=== PATIENT | male | born 1960 | race Caucasian/White ===

== ENCOUNTER 2018-03-16 19:13 | Emergency (ER) | payer OTHER ==
[~2018-03-16] VITALS: Ht 170.2 cm; Wt 95.3 kg
[2018-03-16 21:09] VITALS: BP 150/83
== END 2018-03-16 21:12 | disposition home or self-care (01) ==
LOC: ER 19:13
DX: R21 Rash and other nonspecific skin eruption (principal); F17.210 Nicotine dependence, cigarettes, uncomplicated

== ENCOUNTER 2019-01-13 01:03 | Emergency (ER) | payer OTHER ==
[~2019-01-13] VITALS: Ht 170.2 cm; Wt 108.9 kg
[2019-01-13 02:15] VITALS: BP 160/98
== END 2019-01-13 02:17 | disposition home or self-care (01) ==
LOC: ER 01:03
DX: S60.032A Contusion of left middle finger without damage to nail, initial encounter (principal); S60.051A Contusion of right little finger without damage to nail, initial encounter; Y04.8XXA Assault by other bodily force, initial encounter; Y93.89 Activity, other specified; Y92.89 Other specified places as the place of occurrence of the external cause; Y99.8 Other external cause status

== ENCOUNTER 2019-01-22 09:11 | Emergency (ER) | payer OTHER ==
[~2019-01-22] VITALS: Ht 170.2 cm; Wt 104.3 kg
[2019-01-22 09:37] LABS: ABSOLUTE NEUTROPHILS 6.7 thou/uL (1.4-8.2); BASOPHILS 0.5 % (0.0-2.0); EOSINOPHILS 1.2 % (0.0-3.0); HEMATOCRIT 40.6 % (42.0-52.0); HEMOGLOBIN 13.8 gm/dL (14.0-18.0); LYMPHOCYTES 9.8 % (24.0-44.0); MCH 30.4 pg (26.0-34.0); MCHC 33.8 g/dL (28.0-37.0); MCV 89.9 fL (80.0-100.0); MONOCYTES 5.4 % (1.0-8.0); PLATELET COUNT 253 thou/uL (150-400); POLYS 83.1 % (36.0-66.0); RBC 4.52 mil/uL (4.50-6.00); RDW 14.2 % (10.5-14.5); WBC 8.1 thou/uL (4.0-11.0)
[2019-01-22 09:44] LABS: ANION GAP 8 mmol/L (7-16); BUN 7 mg/dL (7-18); CALCIUM 9.3 mg/dL (8.5-10.1); CHLORIDE 101 mmol/L (98-107); CO2 27 mmol/L (21-32); CREATININE 0.8 mg/dL (0.7-1.3); GLUCOSE 120 mg/dL (74-106); POTASSIUM 3.1 mmol/L (3.5-5.1); SODIUM 136 mmol/L (136-145)
[2019-01-22 09:52] LABS: TROPONIN-I <0.06 ng/mL (<0.06)
[2019-01-22] MEDS ORDERED: CLOTRIMAZOLE 1%15 G1 TOP (10:49)
[2019-01-22] MEDS ORDERED: LISINOPRIL5 MG PO (10:49)
[2019-01-22 12:49] VITALS: BP 135/88
--- NOTE | 2019-01-22 16:19 | EKG ---
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: : 1960 Requested By: Shun Ferrari Order Number: [id number] MD: Juan Pablo Estrada Measurements Intervals [place] Rate: 91 P: 54 DC: 139 QRS: -18 QRSD: 97 T: 69 QT: 354 QTc: 436 Interpretive Statements Sinus rhythm Borderline left axis deviation No previous ECG available for comparison Electronically Signed On 01-22-2019 16:18:59 CDT by Juan Pablo Estrada [email or web address] ��������������������������������������������� <ELECTRONICALLY SIGNED> ���������������������������������������� By: Juan Pablo Estrada MD, [facility] ��������������������������������������������� 01/22/19 1618 0930 Juan Pablo Estrada MD, FACC /EPI
== END 2019-01-22 12:59 | disposition home or self-care (01) ==
LOC: ER 09:11
PROVIDERS: Emergency Medicine
DX: I10 Essential (primary) hypertension (principal); B37.2 Candidiasis of skin and nail; M25.562 Pain in left knee; G62.9 Polyneuropathy, unspecified; E78.00 Pure hypercholesterolemia, unspecified; F17.210 Nicotine dependence, cigarettes, uncomplicated; F10.10 Alcohol abuse, uncomplicated; Z76.0 Encounter for issue of repeat prescription

== ENCOUNTER 2019-10-12 12:25 | Emergency (ER) | payer OTHER ==
[~2019-10-12] VITALS: Ht 170.2 cm; Wt 81.7 kg
[~2019-10-12 12:25] MED LIST: CLOTRIMAZOLE 1%15 G1 TOP; LISINOPRIL5 MG PO
[2019-10-12 13:51] LABS: ABSOLUTE NEUTROPHILS 4.3 thou/uL (1.4-8.2); BASOPHILS 0.8 % (0.0-2.0); HEMATOCRIT 40.5 % (42.0-52.0); HEMOGLOBIN 13.2 gm/dL (14.0-18.0); LYMPHOCYTES 20.7 % (24.0-44.0); MCH 29.8 pg (26.0-34.0); MCHC 32.5 g/dL (28.0-37.0); MCV 91.5 fL (80.0-100.0); MONOCYTES 8.7 % (1.0-8.0); PLATELET COUNT 316 thou/uL (150-400); POLYS 66.8 % (36.0-66.0); RBC 4.43 mil/uL (4.50-6.00); WBC 6.4 thou/uL (4.0-11.0)
[2019-10-12 13:56] LABS: ANION GAP 7 mmol/L (7-16); BUN 12 mg/dL (7-18); CALCIUM 9.5 mg/dL (8.5-10.1); CHLORIDE 103 mmol/L (98-107); CO2 28 mmol/L (21-32); CREATININE 0.8 mg/dL (0.7-1.3); GLUCOSE 105 mg/dL (74-106); SODIUM 138 mmol/L (136-145)
[2019-10-12 14:06] LABS: ALBUMIN 3.5 g/dL (3.4-5.0); SGOT 17 U/L (15-37); SGPT 24 U/L (30-65); TOTAL BILIRUBIN 0.2 mg/dL (<0.1-1.0); TOTAL PROTEIN 7.2 g/dL (6.4-8.2); TROPONIN-I <0.06 ng/mL (<0.06)
[2019-10-12] MEDS ORDERED: LISINOPRIL10 MG PO (14:22)
[2019-10-12] MEDS ORDERED: NEURONTIN 300300 M1 PO (14:29)
[2019-10-12 14:51] VITALS: BP 175/97
--- NOTE | 2019-10-13 11:09 | EKG ---
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: : 1960 Requested By: Barbara Sandhu Order Number: [id number] MD: Juan Pablo Estrada Measurements Intervals [place] Rate: 71 P: 37 ND: 142 QRS: 16 QRSD: 94 T: 49 QT: 366 QTc: 398 Interpretive Statements Sinus rhythm No significant abnormality Compared to ECG 01/22/2019 09:30:36 No significant changes Electronically Signed On 10-13-2019 11:08:04 CDT by Juan Pablo Estrada [email or web address] <ELECTRONICALLY SIGNED> By: Juan Pablo Estrada MD, FACC 10/13/19 1108 1328 1328 Juan Pablo Estrada MD, [facility] /EPI
== END 2019-10-12 14:50 | disposition home or self-care (01) ==
LOC: ER 12:25
PROVIDERS: Nurse Practitioner Family
DX: I10 Essential (primary) hypertension (principal); E78.00 Pure hypercholesterolemia, unspecified; G62.9 Polyneuropathy, unspecified; H53.8 Other visual disturbances; F17.210 Nicotine dependence, cigarettes, uncomplicated; Z91.14 Patient's other noncompliance with medication regimen; Z79.899 Other long term (current) drug therapy

== ENCOUNTER 2020-04-12 14:18 | Emergency (ER) | payer OTHER ==
[~2020-04-12] VITALS: Ht 170.2 cm; Wt 81.7 kg
[~2020-04-12 14:18] MED LIST changes: +LISINOPRIL10 MG PO; +NEURONTIN 300300 M1 PO
[2020-04-12] MEDS ORDERED: HYDROCHLOROTHIA25 M2 PO (14:25)
[2020-04-12] MEDS ORDERED: PRINIVIL20 M1 PO (14:26)
[2020-04-12] MEDS ORDERED: MOBIC15 MG PO (16:58)
[2020-04-12 17:20] VITALS: BP 144/97
== END 2020-04-12 17:20 | disposition home or self-care (01) ==
LOC: ER 14:18
DX: S86.911A Strain of unspecified muscle(s) and tendon(s) at lower leg level, right leg, initial encounter (principal); I10 Essential (primary) hypertension; E78.00 Pure hypercholesterolemia, unspecified; G62.9 Polyneuropathy, unspecified; F17.210 Nicotine dependence, cigarettes, uncomplicated; Z79.899 Other long term (current) drug therapy; X58.XXXA Exposure to other specified factors, initial encounter; Y93.89 Activity, other specified; Y92.89 Other specified places as the place of occurrence of the external cause; Y99.8 Other external cause status

== ENCOUNTER 2020-05-01 02:19 | Emergency (ER) | payer OTHER ==
[~2020-05-01] VITALS: Ht 170.2 cm; Wt 72.6 kg
[~2020-05-01 02:19] MED LIST changes: +HYDROCHLOROTHIA25 M2 PO; +MOBIC15 MG PO; +PRINIVIL20 M1 PO
[2020-05-01 03:28] VITALS: BP 167/101
== END 2020-05-01 03:29 | disposition home or self-care (01) ==
LOC: ER 02:19
DX: S80.811A Abrasion, right lower leg, initial encounter (principal); M79.10 Myalgia, unspecified site; I10 Essential (primary) hypertension; E78.5 Hyperlipidemia, unspecified; F17.210 Nicotine dependence, cigarettes, uncomplicated; Z79.899 Other long term (current) drug therapy; X58.XXXA Exposure to other specified factors, initial encounter; Y93.89 Activity, other specified; Y92.89 Other specified places as the place of occurrence of the external cause; Y99.8 Other external cause status

== ENCOUNTER 2020-05-28 20:22 | Emergency (ER) | payer OTHER ==
[~2020-05-28] VITALS: Ht 170.2 cm; Wt 81.7 kg
[2020-05-28] MEDS ORDERED: FLEXERIL PO (21:30)
[2020-05-28] MEDS ORDERED: MOBIC7.5 MG PO (21:30)
[2020-05-28 22:09] VITALS: BP 120/58
== END 2020-05-28 22:12 | disposition home or self-care (01) ==
LOC: ER 20:22
DX: S86.911A Strain of unspecified muscle(s) and tendon(s) at lower leg level, right leg, initial encounter (principal); I10 Essential (primary) hypertension; E78.5 Hyperlipidemia, unspecified; F17.210 Nicotine dependence, cigarettes, uncomplicated; Z79.899 Other long term (current) drug therapy; X58.XXXA Exposure to other specified factors, initial encounter; Y93.89 Activity, other specified; Y92.89 Other specified places as the place of occurrence of the external cause; Y99.8 Other external cause status

== ENCOUNTER → 2020-06-05 | Emergency (ER) | payer OTHER ==
[~2020-06-05] VITALS: Ht 170.2 cm; Wt 77.1 kg
[~2020-06-05] MED LIST changes: +FLEXERIL PO; +MOBIC7.5 MG PO
== END ==
LOC: ER 16:37
DX: R51.9 Headache, unspecified (principal); Z53.21 Procedure and treatment not carried out due to patient leaving prior to being seen by health care provider

== ENCOUNTER 2020-10-21 12:17 | Emergency (ER) | payer OTHER ==
[~2020-10-21] VITALS: Ht 170.2 cm; Wt 81.7 kg
[2020-10-21 12:42] LABS: ABSOLUTE NEUTROPHILS 4.8 thou/uL (1.4-8.2); BASOPHILS 0.6 % (0.0-2.0); HEMATOCRIT 35.2 % (42.0-52.0); HEMOGLOBIN 11.6 gm/dL (14.0-18.0); LYMPHOCYTES 15.3 % (24.0-44.0); MCH 29.1 pg (26.0-34.0); MCHC 32.9 g/dL (28.0-37.0); MCV 88.4 fL (80.0-100.0); MONOCYTES 12.9 % (1.0-8.0); PLATELET COUNT 267 thou/uL (150-400); POLYS 69.2 % (36.0-66.0); RBC 3.99 mil/uL (4.50-6.00); RDW 16.1 % (10.5-14.5)
[2020-10-21 13:12] LABS: POTASSIUM 3.7 mmol/L (3.5-5.1)
[2020-10-21 13:18] LABS: ALBUMIN 3.6 g/dL (3.4-5.0); MAGNESIUM 1.8 mg/dL (1.8-2.4); TOTAL BILIRUBIN 0.5 mg/dL (0.2-1.0)
[2020-10-21] MEDS ORDERED: CYCLOBENZAPRINE5 MG PO (13:57)
[2020-10-21] MEDS ORDERED: NORCO5 PO (14:10)
[2020-10-21 14:18] VITALS: BP 146/79
== END 2020-10-21 14:19 | disposition home or self-care (01) ==
LOC: ER 12:17
PROVIDERS: Physician Assistant
DX: M51.26 Other intervertebral disc displacement, lumbar region (principal); M79.605 Pain in left leg; E78.00 Pure hypercholesterolemia, unspecified; I10 Essential (primary) hypertension; G62.9 Polyneuropathy, unspecified; F17.210 Nicotine dependence, cigarettes, uncomplicated; Z79.899 Other long term (current) drug therapy; V19.88XA Pedal cyclist (driver) (passenger) injured in other specified transport accidents, initial encounter; Y93.55 Activity, bike riding; Y92.413 State road as the place of occurrence of the external cause; Y99.9 Unspecified external cause status

== ENCOUNTER 2020-10-24 21:47 | Emergency (ER) | payer OTHER ==
[~2020-10-24] VITALS: Ht 170.2 cm; Wt 81.7 kg
[~2020-10-24 21:47] MED LIST changes: +CYCLOBENZAPRINE5 MG PO; +NORCO5 PO
[2020-10-24 23:15] VITALS: BP 0/0
== END 2020-10-24 23:30 | disposition home or self-care (01) ==
LOC: ER 21:47
DX: S01.81XA Laceration without foreign body of other part of head, initial encounter (principal); S51.812A Laceration without foreign body of left forearm, initial encounter; I10 Essential (primary) hypertension; E78.00 Pure hypercholesterolemia, unspecified; G62.9 Polyneuropathy, unspecified; F17.210 Nicotine dependence, cigarettes, uncomplicated; Y00.XXXA Assault by blunt object, initial encounter; Y93.89 Activity, other specified; Y92.89 Other specified places as the place of occurrence of the external cause; Y99.8 Other external cause status

== ENCOUNTER 2020-11-08 19:08 | Emergency (ER) | payer OTHER ==
[~2020-11-08] VITALS: Ht 170.2 cm; Wt 72.6 kg
[2020-11-08] MEDS ORDERED: IBUPROFEN 600600 M1 PO (19:18)
[2020-11-08] MEDS ORDERED: IBUPROFEN 800800 MG PO (20:07)
[2020-11-08 21:08] VITALS: BP 147/69
== END 2020-11-08 21:21 | disposition home or self-care (01) ==
LOC: ER 19:08
DX: S93.602A Unspecified sprain of left foot, initial encounter (principal); E78.00 Pure hypercholesterolemia, unspecified; I10 Essential (primary) hypertension; F17.210 Nicotine dependence, cigarettes, uncomplicated; Z59.0 Homelessness; W22.8XXA Striking against or struck by other objects, initial encounter; Y93.89 Activity, other specified; Y92.89 Other specified places as the place of occurrence of the external cause; Y99.8 Other external cause status

== ENCOUNTER 2020-11-13 16:38 | Inpatient (IN) | payer OTHER ==
[~2020-11-13] VITALS: Ht 170.2 cm; Wt 82.6 kg
[~2020-11-13 16:38] MED LIST changes: +IBUPROFEN 600600 M1 PO; +IBUPROFEN 800800 MG PO
[2020-11-13 16:41] VITALS: BP 116/56
[2020-11-13 18:00] LABS: HEMATOCRIT 36.1 % (42.0-52.0); MCH 29.5 pg (26.0-34.0); MCHC 33.2 g/dL (28.0-37.0); MCV 88.9 fL (80.0-100.0); RBC 4.06 mil/uL (4.50-6.00); RDW 15.5 % (10.5-14.5); WBC 5.8 thou/uL (4.0-11.0)
[2020-11-13 18:19] LABS: ANION GAP 11 mmol/L (7-16); BUN 32 mg/dL (7-18); CALCIUM 9.3 mg/dL (8.5-10.1); CHLORIDE 105 mmol/L (98-107); CO2 26 mmol/L (21-32); GLUCOSE 106 mg/dL (74-106); POTASSIUM 3.9 mmol/L (3.5-5.1); SODIUM 142 mmol/L (136-145)
[2020-11-13 18:29] LABS: ALBUMIN 3.4 g/dL (3.4-5.0); SGOT 21 U/L (15-37); SGPT 29 U/L (30-65); TOTAL BILIRUBIN 0.5 mg/dL (0.2-1.0); TOTAL PROTEIN 6.6 g/dL (6.4-8.2); TROPONIN-I <0.06 ng/mL (<0.06)
[2020-11-13 20:57] VITALS: BP 122/64
[2020-11-13 21:48] VITALS: BP 117/59
[2020-11-13 22:05] VITALS: BP 97/55
[2020-11-13 22:15] VITALS: BP 97/55
[2020-11-14] VITALS (8 sets, daily range): BP systolic 100–128; BP diastolic 55–66
[2020-11-14 03:20] LABS: CALCIUM 8.7 mg/dL (8.5-10.1); CREATININE 0.8 mg/dL (0.7-1.3); POTASSIUM 3.7 mmol/L (3.5-5.1)
[2020-11-14] MEDS ORDERED: CARDIZEM CD 18180 M3 PO (15:18)
--- NOTE | 2020-11-15 11:12 | 2DMMODE ---
[facility] [place] [address] 2 D/M-MODE ECHOCARDIOGRAM Name: JORGE MCKENZIE Room #: 360-P [facility] IN .#: [id number] Admission: 11/13/20 Attend Phys: Shira Mujica MD Discharge: 11/14/20 Date of : 58 Report #: [id number] THIS REPORT FOR: cc: CLARE - No family physician/PCP FAM - No family physician/PCP John Bustos MD [facility] ~ APPROVED REPORT Study performed: 11/14/2020 09:07:59 EXAM: Comprehensive 2D, Doppler, and color-flow Echocardiogram Patient Location: Bedside Room #: 360 Status: on-call BSA: 1.94 HR: 70 bpm BP: 104/66 mmHg Rhythm: NSR Other Information Study Quality: Good Indications Atrial Fibrillation 2D Dimensions RVDd: 41.56 mm IVSd: 9.12 (7-11mm) LVOT Diam: 20.40 (18-24mm) LVDd: 54.06 mm PWd: 9.13 (7-11mm) LVDs: 33.66 (25-40mm) Left Atrium: 46.61 (27-40mm) Aortic Root: 32.44 mm Volumes Left Atrial Volume (Systole) Single Plane 4CH: 67.81 mL Single Plane 2CH: 67.95 mL LA ESV Index: 40.00 mL/m2 Aortic Valve AoV Peak Zaheer.: 1.85 m/s AO Peak Gr.: 13.68 mmHg LVOT Max P.41 mmHg LVOT Max V: 1.27 m/s GABRIELLA Vmax: 2.24 cm2 [facility] [address] [place] [address] 2 D/M-MODE ECHOCARDIOGRAM Name: JORGE MCKENZIE Room #: 360-P [facility] IN ..#: [id number] Admission: 11/13/20 Attend Phys: Shira Mujica MD Discharge: 11/14/20 Date of : 58 Report #: [id number] Mitral Valve E/A Ratio: 1.8 MV Decel. Time: 200.63 ms MV E Max Zaheer.: 1.00 m/s MV A Zaheer.: 0.57 m/s MV PHT: 58.18 ms IVRT: 83.04 ms Pulmonary Valve PV Peak Zaheer.: 1.14 m/s PV Peak Gr.: 5.23 mmHg Tricuspid Valve TR Peak Zaheer.: 2.35 m/s RAP Estimate: 5.00 mmHg TR Peak Gr.: 22.13 mmHg PA Pressure: 27.00 mmHg Left Ventricle The left ventricle is normal size. There is normal LV segmental wall motion. There is normal left ventricular wall thickness. Left ventricular systolic function is normal. LVEF is 55-60%. The left ventricular diastolic function is normal. Right Ventricle The right ventricle is normal size. The right ventricular systolic function is normal. Atria Left atrium is mildly dilated. The right atrium size is normal. Aortic Valve The aortic valve is normal in structure. No aortic regurgitation is present. There is no aortic valvular stenosis. Mitral Valve The mitral valve is normal in structure. Mild mitral regurgitation. Tricuspid Valve The tricuspid valve is normal in structure. Mild tricuspid regurgitation. Estimated PAP is 25-30mmHg. Pulmonic Valve The pulmonary valve is normal in structure. There is no pulmonic valvular regurgitation. [facility] [address] [place] [address] 2 D/M-MODE ECHOCARDIOGRAM Name: JORGE MCKENZIE Room #: 360-P [facility] IN ..#: [id number] Admission: 11/13/20 Attend Phys: Shira Mujica MD Discharge: 11/14/20 Date of : 58 Report #: [id number] Great Vessels The aortic root is normal in size. IVC is normal in size and collapses >50% with inspiration. Pericardium There is no pericardial effusion. <Conclusion> The left ventricle is normal size. LVEF is 55-60%. The left ventricular diastolic function is normal. The right ventricle is normal size. Left atrium is mildly dilated. The aortic valve is normal in structure. Mild mitral regurgitation. Mild tricuspid regurgitation. Estimated PAP is 25-30mmHg. The aortic root is normal in size. There is no pericardial effusion. <ELECTRONICALLY SIGNED> By: John Bustos MD, FACC 11/15/20 1111 1111 1111 John Bustos MD, FAC /INF
--- NOTE | 2020-11-15 15:01 | EKG ---
[address] [place] [address] ELECTROCARDIOGRAM REPORT Name: JORGE MCKENZIE Room #: 360-P [facility].#: [id number] Admission: 11/13/20 Attend Phys: Shira Mujica MD Discharge: 11/14/20 Date of : 58 Report #: [id number] [facility] ED Test Date: 2020-11-13 Test Time: 17:55:53 Pat Name: JORGE MCKENZIE Department: Room: [facility] Gender: M Unemployment Insurance Hearing Officer: JCILSA : 1960 Requested By: Ely Guzman Order Number: [id number] MD: Juan Pablo Estrada Measurements Intervals [place] Rate: 80 P: 54 [place]: 136 QRS: 44 QRSD: 98 T: 32 QT: 352 QTc: 406 Interpretive Statements Sinus rhythm Normal tracing Compared to ECG 10/12/2019 13:28:02 No significant changes Electronically Signed On 11-15-2020 15:00:52 CDT by Juan Pablo Estrada [email or web address] <ELECTRONICALLY SIGNED> By: Juan Pablo Estrada MD, [facility] 11/15/20 1500 1755 54 Juan Pablo Estrada MD, FACC /EPI
--- NOTE | 2020-11-15 15:02 | EKG ---
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: JCILSA : 1960 Requested By: Ely Guzman Order Number: [id number] MD: Juan Pablo Estrada Measurements Intervals [place] Rate: 145 P: [place]: QRS: 46 QRSD: 93 T: QT: 306 QTc: 476 Interpretive Statements Atrial fibrillation Nonspecific repol abnormality, diffuse leads Compared to ECG 11/13/2020 17:55:53 Sinus rhythm no longer present Nonspecific ST and T wave abnormality now present Electronically Signed On 11-15-2020 15:02:09 CDT by Juan Pablo Estrada [email or web address] <ELECTRONICALLY SIGNED> By: Juan Pablo Estrada MD, [facility] 11/15/20 1502 1838 1838 Juan Pablo Estrada MD, [facility] /EPI
--- NOTE | 2020-11-15 15:05 | EKG ---
[address] [place] [address] ELECTROCARDIOGRAM REPORT Name: JORGE MCKENZIE Room #: 360-P [facility]#: [id number] Admission: 11/13/20 Attend Phys: Shira Mujica MD Discharge: 11/14/20 Date of : 58 Report #: [id number] [facility] ED Test Date: 2020-11-13 Test Time: 19:33:45 Pat Name: JORGE MCKENZIE Department: Room: [facility] Gender: M Paint Supervisor: GIORGIO : 1960 Requested By: Ely Guzman Order Number: [id number] MD: Juan Pablo Estrada Measurements Intervals [place] Rate: 73 P: 17 [place]: 137 QRS: 28 QRSD: 99 T: 35 QT: 371 QTc: 409 Interpretive Statements Sinus rhythm No significant abnormality Compared to ECG 11/13/2020 18:38:01 Atrial fibrillation no longer present Nonspecific ST and T wave abnormality no longer present Electronically Signed On 11-15-2020 15:05:24 CDT by Juan Pablo Estrada [email or web address] <ELECTRONICALLY SIGNED> By: Juan Pablo Estrada MD, [facility] 11/15/20 1505 32 32 Juan Pablo Estrada MD, [facility] /EPI
== END 2020-11-14 16:03 | disposition home or self-care (01) | DRG 310 ==
LOC: ER 16:38 → EROBS 20:28 → 3W 21:34
PROVIDERS: Nurse Practitioner Family; ADMIT Internal Medicine; ATTEND Internal Medicine
DX: I48.20 Chronic atrial fibrillation, unspecified (principal); M54.5 Low back pain; I10 Essential (primary) hypertension; G62.9 Polyneuropathy, unspecified; E78.00 Pure hypercholesterolemia, unspecified; F17.210 Nicotine dependence, cigarettes, uncomplicated; G89.29 Other chronic pain; R06.00 Dyspnea, unspecified; Z59.0 Homelessness; F10.10 Alcohol abuse, uncomplicated; Z79.899 Other long term (current) drug therapy; Z20.822 Contact with and (suspected) exposure to COVID-19
CPT/HCPCS: 10879

== ENCOUNTER 2020-11-15 07:08 | Emergency (ER) | payer OTHER ==
[~2020-11-15] VITALS: Ht 170.2 cm; Wt 82.6 kg
[~2020-11-15 07:08] MED LIST changes: +CARDIZEM CD 18180 M3 PO
[2020-11-15 07:18] VITALS: BP 117/55
== END 2020-11-15 08:00 | disposition home or self-care (01) ==
LOC: ER 07:08
DX: R46.89 Other symptoms and signs involving appearance and behavior (principal); E78.00 Pure hypercholesterolemia, unspecified; I10 Essential (primary) hypertension; F17.210 Nicotine dependence, cigarettes, uncomplicated; Z59.0 Homelessness

== ENCOUNTER 2020-11-16 14:54 | Emergency (ER) | payer OTHER ==
[~2020-11-16] VITALS: Ht 170.2 cm; Wt 82.6 kg
[2020-11-16 18:45] VITALS: BP 127/104
--- NOTE | 2020-11-17 07:33 | EKG ---
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
== END 2020-11-16 19:00 | disposition home or self-care (01) ==
LOC: ER 14:54
DX: I48.91 Unspecified atrial fibrillation (principal); E78.00 Pure hypercholesterolemia, unspecified; I10 Essential (primary) hypertension; G62.9 Polyneuropathy, unspecified; F17.210 Nicotine dependence, cigarettes, uncomplicated; Z79.899 Other long term (current) drug therapy

== ENCOUNTER 2020-12-09 21:30 | Emergency (ER) | payer OTHER ==
[~2020-12-09] VITALS: Ht 170.2 cm; Wt 83.9 kg
[2020-12-09] MEDS ORDERED: CARDIZEM CD 18180 M3 PO (21:47)
[2020-12-09 22:09] VITALS: BP 142/76
--- NOTE | 2020-12-10 08:05 | EKG ---
[place] [address] [address] [facility] [place] [address] ELECTROCARDIOGRAM REPORT Name: JORGE MCKENZIE [facility] [id number] Admission: 12/09/20 Attend Phys: Discharge: 12/09/20 Date of : 58 Report #: [id number] [facility] ED Test Date: 2020-12-09 Test Time: 21:36:25 Pat Name: JORGE MCKENZIE Department: Room: Gender: Vice President Risk Management: DANNY : 1960 Requested By: Jorge Lacy Order Number: [id number] MD: Juan Pablo Estrada Measurements Intervals [place] Rate: 84 P: 52 [place]: 140 QRS: 33 QRSD: 93 T: 61 QT: 361 QTc: 427 Interpretive Statements Sinus rhythm Consider left atrial enlargement Compared to ECG 11/16/2020 16:42:00 Atrial flutter no longer present Electronically Signed On 12-10-2020 8:05:49 CDT by Juan Pablo Estrada [email or web address] <ELECTRONICALLY SIGNED> By: Juan Pablo Estrada MD, [facility] 12/10/20 0805 2136 2136 Juan Pablo Estrada MD, FACC /EPI
== END 2020-12-09 22:15 | disposition home or self-care (01) ==
LOC: ER 21:30
DX: R53.83 Other fatigue (principal); I48.91 Unspecified atrial fibrillation; I10 Essential (primary) hypertension; E78.00 Pure hypercholesterolemia, unspecified; F10.10 Alcohol abuse, uncomplicated; F17.210 Nicotine dependence, cigarettes, uncomplicated; Z76.0 Encounter for issue of repeat prescription; Z59.0 Homelessness

== ENCOUNTER 2020-12-31 17:18 | Emergency (ER) | payer OTHER ==
[~2020-12-31] VITALS: Ht 170.2 cm; Wt 83.0 kg
[2020-12-31] MEDS ORDERED: HYDROCODON-ACE1 EAC7 PO (19:33)
[2020-12-31] MEDS ORDERED: DILTIAZEM ER180 M2 PO (19:56)
[2020-12-31 20:37] VITALS: BP 162/87
== END 2020-12-31 20:38 | disposition home or self-care (01) ==
LOC: ER 17:18
DX: M79.18 Myalgia, other site (principal); M79.605 Pain in left leg; I10 Essential (primary) hypertension; E78.00 Pure hypercholesterolemia, unspecified; I48.91 Unspecified atrial fibrillation; G62.9 Polyneuropathy, unspecified; F17.210 Nicotine dependence, cigarettes, uncomplicated; Z79.899 Other long term (current) drug therapy

== ENCOUNTER 2021-01-26 05:25 | Emergency (ER) | payer OTHER ==
[~2021-01-26] VITALS: Ht 170.2 cm; Wt 83.9 kg
[~2021-01-26 05:25] MED LIST changes: +DILTIAZEM ER180 M2 PO; +HYDROCODON-ACE1 EAC7 PO
[2021-01-26] MEDS ORDERED: TAMSULOSIN HCL0.4 MG PO (05:38)
[2021-01-26] MEDS ORDERED: SUBOXONE 8 MG-1 EAC3 SUBLING (05:41)
[2021-01-26] MEDS ORDERED: CEPHALEXIN500 MG PO (06:40)
[2021-01-26] MEDS ORDERED: ULTRAM 50MG TAB50 MG PO (06:40)
[2021-01-26] MEDS ORDERED: BACTRIM DS TAB1 EACH PO (06:40)
[2021-01-26 06:57] VITALS: BP 138/68
== END 2021-01-26 06:58 | disposition home or self-care (01) ==
LOC: ER 05:25
DX: L98.9 Disorder of the skin and subcutaneous tissue, unspecified (principal); E78.00 Pure hypercholesterolemia, unspecified; I10 Essential (primary) hypertension; F17.210 Nicotine dependence, cigarettes, uncomplicated; Z79.899 Other long term (current) drug therapy

== ENCOUNTER 2021-02-01 09:39 | Emergency (ER) | payer OTHER ==
[~2021-02-01] VITALS: Ht 170.2 cm; Wt 81.7 kg
[~2021-02-01 09:39] MED LIST changes: +BACTRIM DS TAB1 EACH PO; +CEPHALEXIN500 MG PO; +SUBOXONE 8 MG-1 EAC3 SUBLING; +TAMSULOSIN HCL0.4 MG PO; +ULTRAM 50MG TAB50 MG PO
[2021-02-01] MEDS ORDERED: [UNRECOGNIZED DRUG - OTHER] PO (11:18)
[2021-02-01 12:14] VITALS: BP 157/85
== END 2021-02-01 12:15 | disposition home or self-care (01) ==
LOC: ER 09:39
DX: A49.02 Methicillin resistant Staphylococcus aureus infection, unspecified site (principal); E78.00 Pure hypercholesterolemia, unspecified; I10 Essential (primary) hypertension; F17.210 Nicotine dependence, cigarettes, uncomplicated; Z79.899 Other long term (current) drug therapy

== ENCOUNTER 2021-02-18 22:41 | Emergency (ER) | payer OTHER ==
[~2021-02-18] VITALS: Ht 170.2 cm; Wt 79.4 kg
[~2021-02-18 22:41] MED LIST changes: +[UNRECOGNIZED DRUG - OTHER] PO
[2021-02-18 23:05] LABS: URINE BILIRUBIN NEGATIVE (Negative); URINE BLOOD NEGATIVE (Negative); URINE CLARITY CLEAR; URINE COLOR YELLOW; URINE GLUCOSE-RANDOM* NEGATIVE (Negative); URINE KETONES NEGATIVE (Negative); URINE LEUKOCYTES-REFLEX NEGATIVE (Negative); URINE NITRITE-REFLEX NEGATIVE (Negative); URINE PROTEIN (DIPSTICK) TRACE (Negative); URINE SPECIFIC GRAVITY >= 1.030 (1.005-1.035); URINE UROBILINOGEN 0.2 E.U./dl (0.2-1.0)
[2021-02-19 01:18] VITALS: BP 104/51
[2021-02-19 08:03] LABS: AMP/METHAMP POSITIVE (Negative); BARBITURATES Negative (Negative); BENZODIAZEPINES Negative (Negative); COCAINE Negative (Negative); METHADONE Negative (Negative); OPIATES Negative (Negative); PCP Negative (Negative)
== END 2021-02-19 01:18 | disposition home or self-care (01) ==
LOC: ER 22:41
DX: G89.29 Other chronic pain (principal); M54.5 Low back pain

== ENCOUNTER 2021-03-25 08:48 | Emergency (ER) | payer OTHER ==
[~2021-03-25] VITALS: Ht 170.2 cm; Wt 79.4 kg
[2021-03-25] MEDS ORDERED: NORVASC5 MG PO (09:01)
[2021-03-25] MEDS ORDERED: LISINOPRIL20 MG PO (09:01)
[2021-03-25 09:16] LABS: BASOPHILS 0.5 % (0.0-2.0); EOSINOPHILS 2.9 % (0.0-3.0); HEMATOCRIT 40.3 % (42.0-52.0); HEMOGLOBIN 12.8 gm/dL (14.0-18.0); LYMPHOCYTES 13.1 % (24.0-44.0); MCH 27.2 pg (26.0-34.0); MCHC 31.7 g/dL (28.0-37.0); MONOCYTES 7.8 % (1.0-8.0); PLATELET COUNT 307 thou/uL (150-400); POLYS 75.7 % (36.0-66.0); RBC 4.69 mil/uL (4.50-6.00); RDW 16.8 % (10.5-14.5); WBC 7.9 thou/uL (4.0-11.0)
[2021-03-25 09:24] LABS: CALCIUM 9.3 mg/dL (8.5-10.1); CREATININE 0.8 mg/dL (0.7-1.3); POTASSIUM 3.8 mmol/L (3.5-5.1)
[2021-03-25 09:33] LABS: MAGNESIUM 1.7 mg/dL (1.8-2.4)
--- NOTE | 2021-03-25 12:51 | EKG ---
[facility] [place] [address] ELECTROCARDIOGRAM REPORT Name: JORGE MCKENZIE [facility] [id number] Admission: 03/25/21 Attend Phys: Discharge: Date of : 58 Report #: [id number] [facility] ED Test Date: 2021-03-25 Test Time: 08:58:58 Pat Name: JORGE MCKENZIE Department: Room: Gender: M Center Sales And Service Associate: NASRA : 1960 Requested By: Dejuan Vallecillo Order Number: [id number] MD: Juan Pablo Estrada Measurements Intervals [place] Rate: 76 P: 73 [place]: 135 QRS: 40 QRSD: 101 T: 39 QT: 389 QTc: 438 Interpretive Statements Sinus rhythm Ventricular bigeminy Compared to ECG 12/09/2020 21:36:25 Ventricular premature complex(es) now present Electronically Signed On 03-25-2021 12:50:42 CDT by Juan Pablo Estrada [email or web address] <ELECTRONICALLY SIGNED> By: Juan Pablo Estrada MD, [facility] 03/25/21 1250 0858 0858 Juan Pablo Estrada MD, FACC /EPI
[2021-03-25 14:08] VITALS: BP 172/89
== END 2021-03-25 14:10 | disposition home or self-care (01) ==
LOC: ER 08:48
PROVIDERS: Student in an Organized Health Care Education/Training Program
DX: R07.89 Other chest pain (principal); R53.1 Weakness; F17.210 Nicotine dependence, cigarettes, uncomplicated; E78.00 Pure hypercholesterolemia, unspecified; I10 Essential (primary) hypertension; Z59.0 Homelessness; Z79.899 Other long term (current) drug therapy; Z20.822 Contact with and (suspected) exposure to COVID-19

== ENCOUNTER 2021-04-12 13:49 | Emergency (ER) | payer OTHER ==
[~2021-04-12] VITALS: Ht 170.2 cm; Wt 77.1 kg
--- NOTE | ~2021-04-12 | EMS ---
[place] [address] EMS Patient Care Report Name: JORGE MCKENZIE Room #: DEP Sudha#: [id number] Admission: 04/12/21 Attend Phys: Discharge: 04/12/21 Date of : 58 Report #: [id number] THIS REPORT FOR: //name// Report Transmitted: 04/13/2021 08:48 EMS Care Summary [place], [place]/[employer] Incident [id number] @ 04/12/2021 13:[address] [place] [address] Patient JORGE MCKENZIE Male, 61 Years 1960 Patient Address Homeless Patient History Hypertension (HTN),Arthritis,IV Drug Use/Abuse,Atrial Fibrillation, Patient Allergies No known allergies, Patient Medications Cardizem, Lisinopril, Chief Complaint heroin OD Disposition Transported No Lights/[place] Dispatch Reason Overdose/Poisoning/Ingestion Transported To [facility] Narrative Initially waved down by by standers on side of street however when EMS parked and got out, wavers stated the pt was actually across the street ahead of the light. Wavers stated it was their friend and he was ODing on Heroin. Went to location bystanders pointed out to find [employer] and [place] [employer] with pt laying supine on a gator vehicle they retrieved the pt from ([place] [address] EMS Patient Care Report Name: JORGE MCKENZIE [facility]: [facility]P [facility]#: [id number] Admission: 04/12/21 Attend Phys: Discharge: 04/12/21 Date of : 58 Report #: [id number] rec). Pt had agonal breathing and PD stated he was purple a few minutes ago however his color was pink upon our arrival. Pumper ordered emergency for hands. Pt administered Narcan on the gator. Pt then lifted onto cot and placed on NRB. Pt secured to cot with cot straps and placed in back of unit. Pt ventilated with BVM as [place] and [employer] Pumper arrived. Pt started to become awake and combative. Pt handcuffed to cot and BVM was discontinued. Pt was alert and responded appropriately to all questions. Pumpers placed in service and [employer] rode with M36 to hospital. Pt transported without incident. Care to RN, rm 9. Initial Vitals @13:46P: 135,R: 18,BP: 146/70,Pain: 0/10,GCS: 15,SpO2: 100,Revised Trauma: 12, @13:34P: 97,CO: 3,SpO2: 97, @13:34P: 97,Glucose: 220,CO: 3,SpO2: 82, @13:34P: 99,R: 10,BP: 177/89,Pain: 0/10,GCS: 3,CO: 2,SpO2: 91,Revised Trauma: 8, Assessments @13:30MENTAL:Unresponsive,SKIN:HEENT:Eyes: Left: Constricted,Eyes: Right: Constricted,Neck/Airway: No Abnormalities,LUNG SOUNDS:General: No Abnormalities,Left Upper: No Abnormalities,Right Upper: No Abnormalities,Left Lower: No Abnormalities,Right Lower: No Abnormalities,ABDOMEN:General: No Abnormalities,Left Upper: No Abnormalities,Right Upper: No Abnormalities,Left Lower: No Abnormalities,Right Lower: No Abnormalities,PELVIS//GI:EXTREMITIES:Left Arm: No Abnormalities,Right Arm: No Abnormalities,Left Leg: No Abnormalities,Right Leg: No Abnormalities,PULSE:NEURO:Other,@13:47MENTAL:Person Oriented,Time Oriented,Combative,Place Oriented,Event Oriented,SKIN:HEENT:Head/Face: No Abnormalities,Eyes: No Abnormalities,LUNG SOUNDS:ABDOMEN:PELVIS//GI:EXTREMITIES:PULSE:NEURO:Slurred Speech, Impression Overdose - Heroin Procedures @13:30 ALS Assessment Response: UnchangedSucceeded @13:33 Oxygen FlowRate: 15 Device: Non Re-breather Mask (NRB) Response: UnchangedSucceeded @13:36 3-Lead ECG Response: UnchangedSucceeded @13:35 NPA Response: UnchangedSucceeded @13:31 Narcan - 2 Milligrams (mg) - Intranasal Response: Improved @13:37 Oxygen FlowRate: 15 Device: Bag Valve Mask (BVM) Response: ImprovedSucceeded Timeline 13:16,Call Received [address] [address] EMS Patient Care Report Name: JORGE MCKENZIE Room #: DEP ROSE Haley#: [id number] Admission: 04/12/21 Attend Phys: Discharge: 04/12/21 Date of : 58 Report #: [id number] 13:16,Dispatch Notified 13:21,Dispatched 13:23,En Route 13:28,On Scene 13:29,At Patient 13:30,ALS Assessment,Response: UnchangedSucceeded, 13:31,Narcan - 2 Milligrams (mg) - Intranasal,Response: Improved 13:33,Oxygen FlowRate: 15 Device: Non Re-breather Mask (NRB) Response: UnchangedSucceeded, 13:34,BP: / M,PULSE: 97,RR: R,SPO2: 82 Ox,ETCO2: ,B,PAIN: ,GCS: , 13:34,BP: 177/89 M,PULSE: 99,RR: 10 R,SPO2: 91 Ox,ETCO2: ,BG: ,PAIN: 0,GCS: 3, 13:34,BP: / M,PULSE: 97,RR: R,SPO2: 97 Ox,ETCO2: ,BG: ,PAIN: ,GCS: , 13:35,NPA Response: UnchangedSucceeded, 13:36,3-Lead ECG,Response: UnchangedSucceeded, 13:37,Oxygen FlowRate: 15 Device: Bag Valve Mask (BVM) Response: ImprovedSucceeded, 13:43,Depart Scene 13:46,BP: 146/70 M,PULSE: 135,RR: 18 R,SPO2: 100 Ox,ETCO2: ,BG: ,PAIN: 0,GCS: 15, 13:47,At Destination 14:01,Call Closed Disclaimer v1.1 Copyright 2020 [employer] This EMS Care Summary contains data elements from the applicable legal record (which may be displayed differently). It is designed to provide pertinent information for the following purposes: continuity of care, clinical quality, and state data reporting. The complete legal record is available to ED staff and administrators of the receiving hospital in ES's Patient Tracker. All data is provided "as is."
[~2021-04-12 13:49] MED LIST changes: +LISINOPRIL20 MG PO; +NORVASC5 MG PO
[2021-04-12 14:12] LABS: BASOPHILS 0.5 % (0.0-2.0); EOSINOPHILS 3.6 % (0.0-3.0); HEMATOCRIT 39.6 % (42.0-52.0); HEMOGLOBIN 12.9 gm/dL (14.0-18.0); LYMPHOCYTES 32.3 % (24.0-44.0); MCH 28.1 pg (26.0-34.0); MCHC 32.5 g/dL (28.0-37.0); MCV 86.6 fL (80.0-100.0); MONOCYTES 8.1 % (1.0-8.0); PLATELET COUNT 394 thou/uL (150-400); POLYS 55.5 % (36.0-66.0); RBC 4.57 mil/uL (4.50-6.00); RDW 16.2 % (10.5-14.5)
[2021-04-12 14:39] LABS: ALBUMIN 3.5 g/dL (3.4-5.0); CALCIUM 8.9 mg/dL (8.5-10.1); POTASSIUM 3.5 mmol/L (3.5-5.1); TOTAL BILIRUBIN 0.2 mg/dL (0.2-1.0); TOTAL PROTEIN 7.2 g/dL (6.4-8.2)
[2021-04-12 14:48] LABS: AMP/METHAMP POSITIVE (Negative); BARBITURATES Negative (Negative); BENZODIAZEPINES Negative (Negative); COCAINE Negative (Negative); METHADONE Negative (Negative); OPIATES POSITIVE (Negative); PCP Negative (Negative)
[2021-04-12 14:49] LABS: URINE BILIRUBIN NEGATIVE (Negative); URINE BLOOD NEGATIVE (Negative); URINE CLARITY CLEAR; URINE COLOR YELLOW; URINE GLUCOSE-RANDOM* TRACE (Negative); URINE KETONES NEGATIVE (Negative); URINE LEUKOCYTES-REFLEX NEGATIVE (Negative); URINE NITRITE-REFLEX NEGATIVE (Negative); URINE PROTEIN (DIPSTICK) 1+ (Negative); URINE SPECIFIC GRAVITY >= 1.030 (1.005-1.035); URINE UROBILINOGEN 0.2 E.U./dl (0.2-1.0)
[2021-04-12 14:53] LABS: SQUAMOUS None Seen /LPF (0-3); URINE RBC 1-2 Rare /HPF (NONE SEEN); URINE WBC-REFLEX None Seen /HPF (0-5)
[2021-04-12 14:54] LABS: BACTERIA-REFLEX None Seen /HPF (None Seen); CRYSTALS None Seen /LPF (None Seen); HYALINE CASTS 0-3 Few /LPF (None Seen)
[2021-04-12 16:28] VITALS: BP 104/71
== END 2021-04-12 16:28 | disposition home or self-care (01) ==
LOC: ER 13:49
PROVIDERS: Nurse Practitioner
DX: T40.1X1A Poisoning by heroin, accidental (unintentional), initial encounter (principal); Z20.822 Contact with and (suspected) exposure to COVID-19; F15.10 Other stimulant abuse, uncomplicated; E78.5 Hyperlipidemia, unspecified; E78.00 Pure hypercholesterolemia, unspecified; I10 Essential (primary) hypertension; G62.9 Polyneuropathy, unspecified; I48.91 Unspecified atrial fibrillation; F17.210 Nicotine dependence, cigarettes, uncomplicated; F10.10 Alcohol abuse, uncomplicated; Z79.891 Long term (current) use of opiate analgesic; Z79.899 Other long term (current) drug therapy; Y92.89 Other specified places as the place of occurrence of the external cause

== ENCOUNTER 2021-04-18 12:46 | Inpatient (IN) | payer OTHER ==
[~2021-04-18] VITALS: Ht 170.2 cm; Wt 77.6 kg
[2021-04-18 12:50] VITALS: BP 79/35
[2021-04-18 13:11] LABS: BASOPHILS 0.7 % (0.0-2.0); EOSINOPHILS 1.6 % (0.0-3.0); HEMOGLOBIN 12.6 gm/dL (14.0-18.0); LYMPHOCYTES 21.8 % (24.0-44.0); MCH 27.6 pg (26.0-34.0); MCHC 32.3 g/dL (28.0-37.0); MCV 85.6 fL (80.0-100.0); MONOCYTES 8.6 % (1.0-8.0); PLATELET COUNT 241 thou/uL (150-400); POLYS 67.3 % (36.0-66.0); RBC 4.56 mil/uL (4.50-6.00); RDW 16.6 % (10.5-14.5); WBC 7.5 thou/uL (4.0-11.0)
[2021-04-18 13:16] LABS: CALCIUM 9.1 mg/dL (8.5-10.1); CREATININE 5.7 mg/dL (0.7-1.3); POTASSIUM 3.8 mmol/L (3.5-5.1)
[2021-04-18 13:27] LABS: ALBUMIN 3.4 g/dL (3.4-5.0); TOTAL PROTEIN 7.2 g/dL (6.4-8.2)
--- NOTE | 2021-04-18 13:35 | EKG ---
[facility] [place] [address] ELECTROCARDIOGRAM REPORT Name: JORGE MCKENZIE Room #: REG [facility]#: [id number] Admission: 04/18/21 Attend Phys: Discharge: Date of : 58 Report #: [id number] [facility] ED Test Date: 2021-04-18 Test Time: 13:04:08 Pat Name: JORGE MCKENZIE Department: Room: Gender: M Registry Np: alina : 1960 Requested By: Ely Guzman Order Number: [id number] MD: Juan Pablo Estrada Measurements Intervals [place] Rate: 73 P: 65 [place]: 167 QRS: 47 QRSD: 110 T: 67 QT: 430 QTc: 474 Interpretive Statements Sinus rhythm Atrial premature complexes Probable left atrial enlargement Artifact in multiple leads Compared to ECG 03/25/2021 08:58:58 Atrial premature complex(es) now present Ventricular premature complex(es) no longer present Electronically Signed On 04-18-2021 13:34:43 CDT by Juan Pablo Estrada [email or web address] <ELECTRONICALLY SIGNED> By: Juan Pablo Estrada MD, [facility] 04/18/21 1334 1304 1304 Juan Pablo Estrada MD, [facility] /EPI
[2021-04-18 13:36] LABS: URINE BILIRUBIN NEGATIVE (Negative); URINE BLOOD 2+ (Negative); URINE CLARITY CLEAR; URINE COLOR YELLOW; URINE GLUCOSE-RANDOM* TRACE (Negative); URINE KETONES NEGATIVE (Negative); URINE NITRITE-REFLEX NEGATIVE (Negative); URINE PROTEIN (DIPSTICK) 1+ (Negative); URINE SPECIFIC GRAVITY >= 1.030 (1.005-1.035)
[2021-04-18 13:49] LABS: URINE LEUKOCYTES-REFLEX 2+ (Negative)
[2021-04-18 13:52] LABS: SQUAMOUS 0-3 Few /LPF (0-3)
[2021-04-18 13:53] LABS: FINE GRANULAR CASTS 0-3 Few /LPF (None Seen); MUCUS >6 Heavy strn/LPF (None Seen); URINE WBC-REFLEX 6-15 Few /HPF (0-5)
[2021-04-18 13:54] LABS: AMORPHOUS URATES Few /LPF (None Seen); URINE RBC 1-2 Rare /HPF (NONE SEEN)
[2021-04-18 13:57] LABS: AMP/METHAMP POSITIVE (Negative); BARBITURATES Negative (Negative); BENZODIAZEPINES Negative (Negative); COCAINE Negative (Negative); METHADONE Negative (Negative); OPIATES Negative (Negative); PCP Negative (Negative)
[2021-04-18 15:12] LABS: APTT 27.1 Seconds (24.5-32.8); INR 1.06; PROTIME 11.5 Seconds (10.5-12.1)
[2021-04-18 15:30] VITALS: BP 115/68
[2021-04-18 16:00] VITALS: BP 117/61
[2021-04-18 18:58] VITALS: BP 124/73
[2021-04-18 23:27] VITALS: BP 124/74
[2021-04-19 02:05] LABS: HAV IgM AB (ANTI-HAV IgM) Negative (Negative); HEPATITIS B SURFACE AG Negative (Negative)
[2021-04-19 03:59] VITALS: BP 147/76
[2021-04-19 04:29] LABS: HEMATOCRIT 34.3 % (42.0-52.0); HEMOGLOBIN 11.5 gm/dL (14.0-18.0); MCH 28.2 pg (26.0-34.0); MCHC 33.5 g/dL (28.0-37.0); RBC 4.08 mil/uL (4.50-6.00); RDW 16.6 % (10.5-14.5); WBC 5.5 thou/uL (4.0-11.0)
[2021-04-19 04:44] LABS: ALBUMIN 2.8 g/dL (3.4-5.0); CALCIUM 8.2 mg/dL (8.5-10.1); MAGNESIUM 1.5 mg/dL (1.8-2.4); TOTAL BILIRUBIN 0.8 mg/dL (0.2-1.0)
[2021-04-19 04:45] LABS: CREATININE 2.9 mg/dL (0.7-1.3)
[2021-04-19 04:49] LABS: CHOLESTEROL 123 mg/dL (<200); HDL CHOLESTEROL 27 mg/dL (>40); LDL CHOLESTEROL 84 mg/dL (<100); SERUM ASSESSMENT Clear; TC:HDL 4.6 Ratio (Not establshd); TRIGLYCERIDE 63 mg/dL (<150); VLDL 13 mg/dL (<40)
--- NOTE | 2021-04-19 06:15 | NUR ---
UPON 0400 REASSESSMENT PATIENT STATED THAT HE HAD A "SEIZURE" EARLIER IN SHIFT. NURSE ASKED PATIENT TO DESCRIBE SYMPTOMS AND HE STATED THAT HE HAD NUMBNESS ON HIS RIGHT SIDE AND STARTED TO DROOL. HE THEN STATED HE CAN "CREATE" THE "SEIZURES" BY RUBBING FEET TOGETHER. PATIENT THEN PRECEDED TO RUB FEET TOGETHER AND STARTED TO HAVE MUMBLED SPEECH. DURING THIS EVENT NURSE ASSESSED PATIENT STRENGTH AND FOUND IT TO BE EQUAL BILATERALLY. WITHIN MINUTE PATIENT STARTED SPEAKING WITH CLEAR SPEECH AND SAID THE NUMBNESS "WENT AWAY". NURSE INSTRUCTED PATIENT TO NOT TRY TO RECREATE FACTORS THAT LEAD TO SIMILAR SYMPTOMS UNTIL DOCTOR ARRIVES AND CAN WITNESS. PATIENT HAS HAD NO SLURRED SPEECH THROUGHOUT SHIFT BESIDES THIS ISOLATED INCIDENT.
[2021-04-19 07:20] VITALS: BP 145/78
--- NOTE | 2021-04-19 08:31 | NUR ---
ASSUMED CARE OF PT AT 0700. PT IS RESTING IN BED, GETTING A ABDOMEN ULTRASOUND AT TIME OF ASSESSMENT AND MEDICATION ADMINISTRATION. PT IS CALM AND COMPLIANT WITH ASSESSMETN AND MEIDICATION ADMINISTRATION. PT HAS NO COMPLAINTS AT THIS TIME OTHER THAN WANTING BREAKFAST. PT REPORTS NO PAIN TO THIS NURSE AT THIS TIME. WILL CONTINUE TO MONITOR.
[2021-04-19 11:15] VITALS: BP 142/66
--- NOTE | 2021-04-19 15:14 | EKG ---
[address] [address] ELECTROCARDIOGRAM REPORT Name: JORGE MCKENZIE Room #: 215-P ADM IN M.R.#: [id number] Admission: 04/18/21 Attend Phys: Mich Gomez MD Discharge: Date of : 58 Report #: [id number] [facility] ED Test Date: 2021-04-18 Test Time: 13:47:30 Pat Name: JORGE AGUILARKINNEY Department: Room: 215 P Gender: M Senior Product Consultant: IG : 1960 Requested By: Mich Gomez Order Number: [id number] : Maurisio Nunez Measurements Intervals [place] Rate: 61 P: 61 [place]: 153 QRS: 48 QRSD: 99 T: 56 QT: 416 QTc: 419 Interpretive Statements Sinus rhythm Compared to ECG 04/18/2021 13:04:08 Atrial premature complex(es) no longer present Electronically Signed On 04-19-2021 15:14:08 CDT by Maurisio Nunez [email or web address] <ELECTRONICALLY SIGNED> By: Maurisio Nunez MD, [facility] 04/19/21 1514 1347 46 Maurisio Nunez MD, FACC /EPI
[2021-04-19 15:30] VITALS: BP 169/84
[2021-04-19 20:03] VITALS: BP 183/109
[2021-04-19 22:02] VITALS: BP 151/85
--- NOTE | 2021-04-20 01:37 | NUR ---
PT ALERT AND ORIENTED X4. HOSTILE AT TIMES DUE TO HE WANTED TO EAT A REGULAR DIET AND WAS ORDERED A FULL LIQUID DIET. 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 SHE DID NOT ADVANCE DIET DUE TO IT WAS UNCLEAR FROM PHYSICIAN NOTES WHY PT STILL ON FULL LIQUIDS. PUDDING GIVEN X1 UNTIL DIET ADVANCED IN AM BY DR. PT STATED HE WAS GIVEN PUDDING AND ICE CREAM ALL DAY BY DAY SHIFT NS BUT CALMED DOWN AND AGREED TO STAY IN THE HOSPITAL AND NOT GO AMA UNTIL AM IF THE DR CHANGES HIS DIET. BED DOWN CALLLIGHT IN REACH. BED ALARM IS ON. NO S/S DTS NOTED SO FAR TONIGHT.
[2021-04-20 03:49] VITALS: BP 152/89
[2021-04-20 04:29] VITALS: BP 152/89
--- NOTE | 2021-04-20 06:04 | NUR ---
PT RESTING QUIETLY THIS AM. NO C/O DIZZINESS OR ABDOMINAL PAIN. BP MODERATELY ELEVATED BUT NOT HIGH ENOUGH TO TREAT THIS AM. NO S/S DISTRESS BED DOWN CALL LIGHT IN REACH.
[2021-04-20 07:45] VITALS: BP 158/97
[2021-04-20 10:12] LABS: HEMOGLOBIN 11.6 gm/dL (14.0-18.0); MCH 27.3 pg (26.0-34.0); MCHC 32.2 g/dL (28.0-37.0); MCV 84.7 fL (80.0-100.0); PLATELET COUNT 176 thou/uL (150-400); RBC 4.25 mil/uL (4.50-6.00); RDW 16.4 % (10.5-14.5); WBC 5.1 thou/uL (4.0-11.0)
[2021-04-20 10:39] LABS: MAGNESIUM 1.3 mg/dL (1.8-2.4); PHOSPHORUS 3.1 mg/dL (2.6-4.7)
--- NOTE | 2021-04-20 10:49 | NUR ---
Assumed care of pt this AM. Pt is A&O x4, on RA. Denies any chest pain. SR on the monitor. Fall precautions in place & calls appropriately. Completed med rec & restarted home meds d/t HTN. Diet advanced to regular. Will continue to assess.
[2021-04-20 11:25] VITALS: BP 161/104
--- NOTE | 2021-04-20 11:32 | NUR ---
Patient admits with weakness and dizzzy. Patient has hepatitis. Patient is homeless. Hx of meth/thc. Patient reports at dc he may be able to stay with a friend at [place] [address]. Discussed casemgt can assist with cab to location. Patient currently working at [employer]. Gave patient phone and number to call to alert he is in hospital. Gave patient [facility] informnation. Patient utilizes bike and has a tent he resides in near hospital. Patient with need for PCP, however utilizes ER for services. message lest for first [facility] to f/u with patient for medicaid or disability.
[2021-04-20 13:32] LABS: ABSOLUTE NEUTROPHILS 1.5 thou/uL (1.4-8.2); ATYPICAL LYMPHS 14 %
[2021-04-20 15:40] VITALS: BP 151/96
[2021-04-20 19:12] VITALS: BP 147/94
--- NOTE | 2021-04-20 19:45 | NUR ---
PT WATCHING TV IN BED, IN THE DARK. SMILNG TALKATIVE. IVF, PT REQUESTED HS SNACK AND PROVIDED.
[2021-04-21 03:40] VITALS: BP 168/98
[2021-04-21 07:30] VITALS: BP 140/90
[2021-04-21 11:00] VITALS: BP 145/86
[2021-04-21 11:13] LABS: ALBUMIN 2.8 g/dL (3.4-5.0); CALCIUM 8.8 mg/dL (8.5-10.1); POTASSIUM 4.5 mmol/L (3.5-5.1); TOTAL BILIRUBIN 0.4 mg/dL (0.2-1.0); TOTAL PROTEIN 6.2 g/dL (6.4-8.2)
[2021-04-21 11:22] LABS: CREATININE 1.1 mg/dL (0.7-1.3)
[2021-04-21 16:00] VITALS: BP 149/87
--- NOTE | 2021-04-21 16:53 | NUR ---
ASSESSMENT CHARTED - MEDS PER AUG - GIVEN MS 2 MGS FOR CO'S OF HEADACHE WITH GOOD RELIEF. CHRIS DIET AND FLUIDS WITH NO CO'S OF NAUSEA. PT VOICING PER URINAL - IV FLUIDS CONTINUE ORDERED. PT UP TO THE BATHROOM FOR BM THIS AM. NO CO'S AT THE PREENT TIME APPEARS TO BE RESTING COMFORTABLY.
[2021-04-21 19:46] VITALS: BP 147/90
[2021-04-22 04:57] LABS: ALBUMIN 2.8 g/dL (3.4-5.0); CALCIUM 8.8 mg/dL (8.5-10.1); CREATININE 0.9 mg/dL (0.7-1.3); MAGNESIUM 1.4 mg/dL (1.8-2.4); POTASSIUM 4.5 mmol/L (3.5-5.1); TOTAL BILIRUBIN 0.4 mg/dL (0.2-1.0); TOTAL PROTEIN 6.3 g/dL (6.4-8.2)
[2021-04-22 05:07] VITALS: BP 160/88
--- NOTE | 2021-04-22 05:21 | NUR ---
pt resting quietly in room thru the noc, voiding per urinal, requesting freq snacks, ms given for c/o arthur at start of shift, repositions self in bed, pending am labs, will con't to monitor per ppoc.
[2021-04-22 05:22] LABS: HEMATOCRIT 35.5 % (42.0-52.0); HEMOGLOBIN 11.9 gm/dL (14.0-18.0); MCH 28.2 pg (26.0-34.0); MCHC 33.4 g/dL (28.0-37.0); MCV 84.6 fL (80.0-100.0); RBC 4.2 mil/uL (4.50-6.00); RDW 16.6 % (10.5-14.5); WBC 5.8 thou/uL (4.0-11.0)
[2021-04-22 08:33] VITALS: BP 150/96
[2021-04-22 12:07] VITALS: BP 140/89
[2021-04-22 13:39] LABS: HEPATITIS C VIRUS AB 7.5
[2021-04-22] MEDS ORDERED: CARDIZEM CD 18180 M3 PO (14:32)
[2021-04-22] MEDS ORDERED: CEFUROXIME250 MG PO (14:32)
[2021-04-22] MEDS ORDERED: NORVASC5 MG PO (14:32)
[2021-04-22 15:14] VITALS: BP 142/86
[2021-04-22 16:11] VITALS: BP 142/86
[2021-04-22 16:23] VITALS: BP 142/86
--- NOTE | 2021-04-22 16:28 | NUR ---
Pt dcing today. He declined homeless care home info and wants to dc via his bicyle back to his tent. Three dc medications vouched per the [facility] for a total of $52.73. [facility] info provided. Encouraged followup care.
--- NOTE | 2021-04-22 16:42 | NUR ---
ASSESSMENT CHARTED - MEDS PER AUG - GIVEN MOTRIN FOR CO'S OF HEADACHE WITH RELIEF. CHRIS DIET AND FLUIDS-NO CO'S OF NASUEA. UP AD RENEE IN ROOM... SHOWERED THIS AFTERNOON. PT HOME THIS AFTER - INSTRUCTION RE HOME MEDS/ FOLLOW UP AND CARE GIVEN - STATED HE KNEW ALL ABOUT THAT STUFF AND DID NOT NEED TO HEAR IT AGAIN- GAVE PT MEDICATIONS FILLED IN OUTPT PHARM - TOOK TO SECURITY AND RETIEVED BIKE - PT LEFT VIA BIKE . NO CO'S AT TIME OF D/C.
== END 2021-04-22 16:40 | disposition home or self-care (01) | DRG 441 ==
LOC: ER 12:46 → EROBS 14:57 → 2N 15:43
PROVIDERS: Emergency Medicine; Nurse Practitioner Family; ADMIT Internal Medicine; ATTEND Internal Medicine
DX: B17.10 Acute hepatitis C without hepatic coma (principal); N17.0 Acute kidney failure with tubular necrosis; G92.8 Other toxic encephalopathy; E44.0 Moderate protein-calorie malnutrition; N30.00 Acute cystitis without hematuria; E87.2 Acidosis; N40.1 Benign prostatic hyperplasia with lower urinary tract symptoms; Z20.822 Contact with and (suspected) exposure to COVID-19; E78.00 Pure hypercholesterolemia, unspecified; I10 Essential (primary) hypertension; G62.9 Polyneuropathy, unspecified; F12.90 Cannabis use, unspecified, uncomplicated; R74.01 Elevation of levels of liver transaminase levels; F15.10 Other stimulant abuse, uncomplicated; D63.8 Anemia in other chronic diseases classified elsewhere; F17.210 Nicotine dependence, cigarettes, uncomplicated; Z59.00 Homelessness unspecified
CPT/HCPCS: 10081

== ENCOUNTER 2021-04-29 23:19 | Inpatient (IN) | payer OTHER ==
[~2021-04-29] VITALS: Ht 175.3 cm; Wt 79.4 kg
--- NOTE | ~2021-04-29 | EKG ---
[address] [place] [address] ELECTROCARDIOGRAM REPORT Name: JORGE MCKENZIE Room #: 219-P ADM IN M.R.#: [id number] Admission: 04/30/21 Attend Phys: Evelyn Dunlap Discharge: Date of : 58 Report #: [id number] [facility] ED Test Date: 2021-04-30 Test Time: 01:29:51 Pat Name: JORGE MCKENZIE Department: Room: 219 P Gender: M School Bus Attendant: meir : 1960 Requested By: Lynne Pisano Order Number: [id number] MD: Measurements Intervals [place] Rate: 72 P: 58 [place]: 142 QRS: 11 QRSD: 106 T: 38 QT: 369 QTc: 404 Interpretive Statements Sinus rhythm Compared to ECG 04/29/2021 23:36:11 Atrial fibrillation no longer present ST (T wave) deviation no longer present [email or web address] By: 0129 012 Epiphany Epiphany, /EPI
[~2021-04-29 23:19] MED LIST changes: +CEFUROXIME250 MG PO
[2021-04-29 23:29] VITALS: BP 143/85
[2021-04-29 23:52] LABS: ABSOLUTE NEUTROPHILS 4.9 thou/uL (1.4-8.2); BASOPHILS 0.8 % (0.0-2.0); EOSINOPHILS 0.5 % (0.0-3.0); HEMATOCRIT 34.1 % (42.0-52.0); HEMOGLOBIN 10.9 gm/dL (14.0-18.0); LYMPHOCYTES 16.6 % (24.0-44.0); MCH 27.4 pg (26.0-34.0); MCV 85.4 fL (80.0-100.0); MONOCYTES 7.6 % (1.0-8.0); PLATELET COUNT 375 thou/uL (150-400); POLYS 74.5 % (36.0-66.0); RBC 3.99 mil/uL (4.50-6.00); RDW 16.5 % (10.5-14.5); WBC 6.6 thou/uL (4.0-11.0)
[2021-04-30 00:01] LABS: CALCIUM 8.4 mg/dL (8.5-10.1); POTASSIUM 3.6 mmol/L (3.5-5.1)
[2021-04-30 00:05] LABS: APTT 25.8 Seconds (24.5-32.8); INR 1.08; PROTIME 11.7 Seconds (10.5-12.1)
[2021-04-30 00:10] LABS: ALBUMIN 3.4 g/dL (3.4-5.0); MAGNESIUM 1.3 mg/dL (1.8-2.4); TOTAL BILIRUBIN 0.4 mg/dL (0.2-1.0); TOTAL PROTEIN 6.6 g/dL (6.4-8.2)
[2021-04-30 01:42] LABS: URINE BILIRUBIN NEGATIVE (Negative); URINE BLOOD NEGATIVE (Negative); URINE CLARITY CLEAR; URINE COLOR YELLOW; URINE GLUCOSE-RANDOM* TRACE (Negative); URINE KETONES NEGATIVE (Negative); URINE LEUKOCYTES-REFLEX NEGATIVE (Negative); URINE NITRITE-REFLEX NEGATIVE (Negative); URINE PROTEIN (DIPSTICK) NEGATIVE (Negative)
[2021-04-30 01:45] VITALS: BP 122/86
[2021-04-30 01:50] LABS: AMP/METHAMP POSITIVE (Negative); BARBITURATES Negative (Negative); BENZODIAZEPINES Negative (Negative); COCAINE Negative (Negative); METHADONE Negative (Negative); OPIATES Negative (Negative); PCP Negative (Negative)
--- NOTE | 2021-04-30 04:04 | NUR ---
0215 PATIENT IS ADMITTED TO UNIT VIA STRETCHER FROM THE ED. PATIENT IS AAOX3 BUT IS SLURRING HIS WORDS. SMELL OF ETOH IS STRONG. PATIENT MUMBLES SOME WORDS THAT ARE INCOHERENT. HE IS PARANOID ASKING IF THE STAFF IN THE ROOM WORKS FOR THE HOSPITAL. WHEN INVENTORYING HIS BELONGINGS FOUND SEVERAL PIECES OF CONTRABAND. SECURITY WAS CALLED AND BELONGINGS WERE TURNED OVER. HE ALSO HAS 2 PILL BOTTLES THAT HAD ANOTHER PERSONS NAME ON THEM. HE APPEARS TO HAVE COVERTED TO CONTROLLED SINUS RHYTHYM AT 80CC. CARDIZEM REMAINS AT 10CC/HR AT THIS TIME. PATIENT AT THIS TIME SHOWS NO S/S OF AGGRESSION THAT WAS REPORTEDLY DISPLAYED IN THE ER. PATIENTS VITAL SIGNS ARE STABLE. ALL SAFETY PRECAUTIONS ARE PUT IN PLACE. PATIENT PLACED IN CIWA PROTOCOL. WILL CONTINUE TO MONITOR FOR CHANGES IN STATUS.
[2021-04-30 05:26] VITALS: BP 144/67
--- NOTE | 2021-04-30 07:09 | EKG ---
[place] [address] [facility] [place] [address] ELECTROCARDIOGRAM REPORT Name: JORGE MCKENZIE Room #: 219-P ADM IN M.R.#: [id number] Admission: 04/30/21 Attend Phys: Evelyn Dunlap Discharge: Date of : 58 Report #: [id number] [facility] ED Test Date: 2021-04-29 Test Time: 23:36:11 Pat Name: JORGE MCKENZIE Department: Room: 219 Gender: M Metrology Specialist: meir : 1960 Requested By: Quan Damon Order Number: [id number] MD: Maurisio Nunez Measurements Intervals [place] Rate: 155 P: [place]: QRS: 21 QRSD: 94 T: 39 QT: 301 QTc: 484 Interpretive Statements Atrial fibrillation ST depression, probably rate related Borderline prolonged QT interval Compared to ECG 04/18/2021 13:47:30 ST (T wave) deviation now present Sinus rhythm no longer present Electronically Signed On 04-30-2021 7:09:42 CDT by Maurisio Nunez [email or web address] <ELECTRONICALLY SIGNED> By: Maurisio Nunez MD, [facility] [id number] [phone] Maurisio Nunez MD, [facility] /EPI
[2021-04-30 08:28] VITALS: BP 150/78
--- NOTE | 2021-04-30 08:56 | EKG ---
[address] [place] [address] ELECTROCARDIOGRAM REPORT Name: JORGE MCKENZIE Room #: 219-P ADM IN M.R.#: [id number] Admission: 04/30/21 Attend Phys: Evelyn Dunlap Discharge: Date of : 58 Report #: [id number] [facility] ED Test Date: 2021-04-30 Test Time: 01:29:51 Pat Name: JORGE MCKENZIE Department: Room: 219 P Gender: M Ore Sampler: meir : 1960 Requested By: Quan Damon Order Number: [id number] MD: Juan Pablo Estrada Measurements Intervals [place] Rate: 72 P: 58 [place]: 142 QRS: 11 QRSD: 106 T: 38 QT: 369 QTc: 404 Interpretive Statements Sinus rhythm Normal tracing Compared to ECG 04/29/2021 23:36:11 Atrial fibrillation no longer present ST (T wave) deviation no longer present Electronically Signed On 04-30-2021 8:56:34 CDT by Juan Pablo Estrada [email or web address] <ELECTRONICALLY SIGNED> By: Juan Pablo Estrada MD, [facility] 04/30/21 0856 012 Juan Pablo Estrada MD, [facility] /EPI
[2021-04-30] MEDS ORDERED: PEPCID20 MG PO (12:08)
[2021-04-30] MEDS ORDERED: ARNUITY ELLIP100 MCG INH (12:08)
[2021-04-30] MEDS ORDERED: SEREVENT DISKU50 MCG INH (12:11)
[2021-04-30] MEDS ORDERED: CARDIZEM CD120 MG PO (12:13)
[2021-04-30 12:15] VITALS: BP 149/75
[2021-04-30] MEDS ORDERED: ASA81BEC PO (12:15)
--- NOTE | 2021-04-30 12:29 | 2DMMODE ---
[facility] [place] [address] 2 D/M-MODE ECHOCARDIOGRAM Name: JORGE MCKENZIE Room #: 219-P ADM IN M.R.#: [id number] Admission: 04/30/21 Attend Phys: Evelyn Dunlap Discharge: Date of : 58 Report #: [id number] THIS REPORT FOR: cc: FAM - No family physician/PCP FAM - No family physician/PCP Juan Pablo Estrada MD [facility] ~ APPROVED REPORT Study performed: 04/30/2021 10:18:17 EXAM: Comprehensive 2D, Doppler, and color-flow Echocardiogram Patient Location: Bedside Room #: 219 Status: routine BSA: 1.95 HR: 86 bpm BP: 150/78 mmHg Rhythm: NSR Other Information Study Quality: Adequate Indications Afib. Hx: HTN, polysubstance abuse. 2D Dimensions IVSd: 10.11 (7-11mm) LVOT Diam: 19.69 (18-24mm) LVDd: 57.49 mm PWd: 10.39 (7-11mm) LVDs: 41.97 (25-40mm) Left Atrium: 41.39 (27-40mm) Aortic Root: 31.41 mm Volumes Left Atrial Volume (Systole) Single Plane 4CH: 61.34 mL Single Plane 2CH: 72.05 mL LA ESV Index: 37.00 mL/m2 Aortic Valve AoV Peak Zaheer.: 1.46 m/s AO Peak Gr.: 8.49 mmHg LVOT Max P.21 mmHg LVOT Max V: 1.14 m/s GABRIELLA Vmax: 2.38 cm2 [facility] [address] [place] [address] 2 D/M-MODE ECHOCARDIOGRAM Name: JORGE MCKENZIE Room #: 219-P [facility] IN [facility]#: [id number] Admission: 04/30/21 Attend Phys: Evelyn Silva Aug Discharge: Date of : 58 Report #: [id number] Mitral Valve E/A Ratio: 0.8 MV Decel. Time: 139.72 ms MV E Max Zaheer.: 0.68 m/s MV A Zaheer.: 0.82 m/s MV PHT: 40.52 ms IVRT: 79.58 ms Pulmonary Valve PV Peak Zaheer.: 1.00 m/s PV Peak Gr.: 3.99 mmHg Tricuspid Valve TR Peak Zaheer.: 2.32 m/s RAP Estimate: 5.00 mmHg TR Peak Gr.: 21.47 mmHg PA Pressure: 26.00 mmHg Left Ventricle The left ventricle is normal size. There is normal LV segmental wall motion. There is normal left ventricular wall thickness. Left ventricular systolic function is normal. LVEF is 55%. Mild diastolic dysfunction Right Ventricle The right ventricle is normal size. The right ventricular systolic function is normal. Atria Left atrium is mildly dilated. Right atrium is at the upper limits of normal. Aortic Valve Aortic valve is mildly calcified. No aortic regurgitation is present. There is no aortic valvular stenosis. Mitral Valve The mitral valve is normal in structure. Mild to moderate mitral regurgitation. No evidence of mitral valve stenosis. Tricuspid Valve The tricuspid valve is normal in structure. Trace tricuspid regurgitation. Estimated PAP is 26mmHg. Pulmonic Valve The pulmonary valve is normal in structure. Trace pulmonic regurgitation. [facility] [address] [place] [address] 2 D/M-MODE ECHOCARDIOGRAM Name: JORGE MCKENZIE Room #: 219-P [facility] IN M.R.#: [id number] Admission: 04/30/21 Attend Phys: Evelyn Mary Discharge: Date of : 58 Report #: [id number] Great Vessels The aortic root is normal in size. Ascending aorta is not well visualized. IVC is normal in size and collapses >50% with inspiration. Pericardium There is no pericardial effusion. <Conclusion> Left ventricular systolic function is normal. There is normal LV segmental wall motion. LVEF is 55%. Mild diastolic dysfunction Aortic valve is mildly calcified. No aortic regurgitation or stenosis The mitral valve is normal in structure. Mild to moderate mitral regurgitation. Trace tricuspid regurgitation. Estimated pulmonary artery pressure of 26mmHg. There is no pericardial effusion. <ELECTRONICALLY SIGNED> By: Juan Pablo Estrada MD, [facility] 04/30/21 1229 1229 1229 Juan Pablo Estrada MD, [facility]ACC /INF
[2021-04-30 14:34] VITALS: BP 149/75
--- NOTE | 2021-04-30 14:50 | NUR ---
EXPLAINED DISCHARGE INSTRUCTIONS TO PT INCLUDING FOLLOW UP APPOINTMENTS AND MEDICATION CHANGES. PT STATED HE UNDERSTOOD.
--- NOTE | 2021-04-30 18:07 | NUR ---
Patient dc prior to casemgt seeing patient
== END 2021-04-30 15:38 | disposition home or self-care (01) | DRG 310 ==
LOC: ER 23:19 → EROBS 04-30 01:13 → 2N 04-30 01:47
PROVIDERS: Emergency Medicine; ADMIT Hospitalist; ATTEND Hospitalist
DX: I48.91 Unspecified atrial fibrillation (principal); E78.00 Pure hypercholesterolemia, unspecified; I10 Essential (primary) hypertension; G62.9 Polyneuropathy, unspecified; E78.5 Hyperlipidemia, unspecified; F17.210 Nicotine dependence, cigarettes, uncomplicated; E83.42 Hypomagnesemia; R74.01 Elevation of levels of liver transaminase levels; F19.10 Other psychoactive substance abuse, uncomplicated; G89.29 Other chronic pain; Z79.899 Other long term (current) drug therapy; Z86.19 Personal history of other infectious and parasitic diseases; Z20.822 Contact with and (suspected) exposure to COVID-19; Z28.21 Immunization not carried out because of patient refusal
CPT/HCPCS: 10081

== ENCOUNTER 2021-05-08 00:01 | Inpatient (IN) | payer OTHER ==
[~2021-05-08] VITALS: Ht 165.1 cm; Wt 81.6 kg
[~2021-05-08 00:01] MED LIST changes: +ARNUITY ELLIP100 MCG INH; +ASA81BEC PO; +CARDIZEM CD120 MG PO; +PEPCID20 MG PO; +SEREVENT DISKU50 MCG INH
[2021-05-08 01:58] LABS: ABSOLUTE NEUTROPHILS 2.7 thou/uL (1.4-8.2); EOSINOPHILS 1.7 % (0.0-3.0); HEMATOCRIT 31.7 % (42.0-52.0); HEMOGLOBIN 10.2 gm/dL (14.0-18.0); LYMPHOCYTES 31.4 % (24.0-44.0); MCH 27.8 pg (26.0-34.0); MCHC 32.3 g/dL (28.0-37.0); MCV 85.9 fL (80.0-100.0); PLATELET COUNT 270 thou/uL (150-400); POLYS 54.9 % (36.0-66.0); RBC 3.68 mil/uL (4.50-6.00); RDW 16.2 % (10.5-14.5); WBC 4.9 thou/uL (4.0-11.0)
[2021-05-08 02:02] LABS: CALCIUM 8.7 mg/dL (8.5-10.1); CREATININE 0.9 mg/dL (0.7-1.3); POTASSIUM 3.6 mmol/L (3.5-5.1)
[2021-05-08 02:12] LABS: ALBUMIN 3.4 g/dL (3.4-5.0); DIRECT BILIRUBIN 0.1 mg/dL (<0.1-0.2); MAGNESIUM 1.8 mg/dL (1.8-2.4); TOTAL BILIRUBIN 0.3 mg/dL (0.2-1.0); TOTAL PROTEIN 6.5 g/dL (6.4-8.2)
--- NOTE | 2021-05-08 02:34 | NUR ---
PT RESTLESS IN BED STATING THAT HE BELIEVES SOMETHING BIT HIM. PT'S CONCERNS ADDRESSED BY ERP AND PT IS STILL ADAMANT THAT THERE ARE BUGS BITING HIM.
[2021-05-08 03:02] LABS: URINE BILIRUBIN NEGATIVE (Negative); URINE BLOOD NEGATIVE (Negative); URINE CLARITY CLEAR; URINE COLOR YELLOW; URINE GLUCOSE-RANDOM* NEGATIVE (Negative); URINE KETONES NEGATIVE (Negative); URINE LEUKOCYTES-REFLEX NEGATIVE (Negative); URINE NITRITE-REFLEX NEGATIVE (Negative); URINE PROTEIN (DIPSTICK) NEGATIVE (Negative); URINE SPECIFIC GRAVITY >= 1.030 (1.005-1.035); URINE UROBILINOGEN 0.2 E.U./dl (0.2-1.0)
[2021-05-08 03:11] LABS: AMP/METHAMP POSITIVE (Negative); BARBITURATES Negative (Negative); BENZODIAZEPINES Negative (Negative); COCAINE Negative (Negative); METHADONE Negative (Negative); OPIATES Negative (Negative); PCP Negative (Negative)
[2021-05-08 06:33] VITALS: BP 98/50
[2021-05-08 07:28] VITALS: BP 98/50
[2021-05-08 07:42] VITALS: BP 105/63
[2021-05-08] MEDS ORDERED: ASA81BEC PO (08:56)
[2021-05-08] MEDS ORDERED: DILT-XR120 MG PO (08:56)
--- NOTE | 2021-05-08 09:29 | EKG ---
[place] [address] [facility] [place] [address] ELECTROCARDIOGRAM REPORT Name: JORGE MCKENZIE Room #: 208-P ADM IN M.R.#: [id number] Admission: 05/08/21 Attend Phys: Melvin Longoria MD Discharge: Date of : 58 Report #: [id number] [facility] ED Test Date: 2021-05-08 Test Time: 01:31:27 Pat Name: JORGE MCKENZIE Department: Room: 208 Gender: M Foreign Exchange Clerk: MARIE : 1960 Requested By: Elda Garcia Order Number: [id number] MD: Maurisio Nunez Measurements Intervals [place] Rate: 142 P: [place]: QRS: -8 QRSD: 99 T: 50 QT: 246 QTc: 378 Interpretive Statements Atrial fibrillation Ventricular premature complex Borderline repolarization abnormality Baseline wander in lead(s) I Compared to ECG 04/30/2021 01:29:51 Ventricular premature complex(es) now present Sinus rhythm no longer present Electronically Signed On 05-08-2021 9:28:48 CULINARY WORKER by Maurisio Nunez [email or web address] <ELECTRONICALLY SIGNED> By: Maurisio Nunez MD, [facility] 05/08/21 0928 0 0 Maurisio Nunez MD, [facility] /EPI
[2021-05-08] MEDS ORDERED: CARDIZEM CD120 MG PO (10:50)
[2021-05-08 11:26] VITALS: BP 130/63
--- NOTE | 2021-05-08 12:16 | NUR ---
RECEIVED CALL FROM BIPIN HANSEN THAT PT IS BEING DISCHARGED TODAY AND IS HOMELESS PT WAS JUST DISCHARGED FROM [facility] A COUPLE WEEKS AGO. TOOK HOMELESS USP INFORMATION FOR THE NURSE TO GIVE TO PT SO HE CAN CALL AND SEE IF THEY CAN HELP HIM AND THEY HAVE A CAB VOUCHER FOR HIM IS HE NEEDS TRANSPORTATION TO GO TO WHEREVER HE IS GOING TO STAY. INFORMED ALISHA LOWRY MGMT MGR OF SITUATION.
[2021-05-08 15:26] VITALS: BP 105/55
[2021-05-08 15:27] VITALS: BP 105/55
--- NOTE | 2021-05-08 16:58 | NUR ---
PATIENT DISCHARGED, EDUCATION DONE AT BEDSIDE. NO QUESTIONS ABOUT DISCHARGE EDUCATION. PATIENT GIVEN WRIST BRACE AND TOLD TO FOLLOW UP IN 10 DAYS FOR AN XRAY AT [facility]. PATIENT ALSO GIVEN CARE BAG FROM [place] AND EXTRA CLOTHES. PATIENT TAKEN TO ER SECURITY TO WAIT FOR CAB WITH CAB VOUCHER.
== END 2021-05-08 17:15 | disposition home or self-care (01) | DRG 310 ==
LOC: ER 00:01 → EROBS 06:07 → 2N 07:40
PROVIDERS: Emergency Medicine; ADMIT Hospitalist; ATTEND Hospitalist
DX: I48.91 Unspecified atrial fibrillation (principal); E78.00 Pure hypercholesterolemia, unspecified; I10 Essential (primary) hypertension; G62.9 Polyneuropathy, unspecified; F12.90 Cannabis use, unspecified, uncomplicated; I95.9 Hypotension, unspecified; E78.5 Hyperlipidemia, unspecified; F19.10 Other psychoactive substance abuse, uncomplicated; M06.9 Rheumatoid arthritis, unspecified; M19.90 Unspecified osteoarthritis, unspecified site; Z20.822 Contact with and (suspected) exposure to COVID-19; Z86.19 Personal history of other infectious and parasitic diseases; Z91.14 Patient's other noncompliance with medication regimen
CPT/HCPCS: 10081

== ENCOUNTER 2021-05-28 18:22 | Inpatient (IN) | payer OTHER ==
[~2021-05-28] VITALS: Ht 170.2 cm; Wt 73.0 kg
[~2021-05-28 18:22] MED LIST changes: +DILT-XR120 MG PO
[2021-05-28 18:44] VITALS: BP 66/36; BP 92/76
[2021-05-28 18:59] LABS: URINE BILIRUBIN NEGATIVE (Negative); URINE BLOOD NEGATIVE (Negative); URINE CLARITY CLEAR; URINE COLOR YELLOW; URINE GLUCOSE-RANDOM* NEGATIVE (Negative); URINE KETONES NEGATIVE (Negative); URINE LEUKOCYTES-REFLEX NEGATIVE (Negative); URINE NITRITE-REFLEX NEGATIVE (Negative); URINE PROTEIN (DIPSTICK) NEGATIVE (Negative); URINE UROBILINOGEN 0.2 E.U./dl (0.2-1.0)
[2021-05-28] MEDS ORDERED: ZESTRIL5 MG PO (19:01)
[2021-05-28] MEDS ORDERED: NORVASC 2.5 MG2.5 M1 PO (19:03)
[2021-05-28 19:06] LABS: AMP/METHAMP POSITIVE (Negative); BARBITURATES Negative (Negative); BENZODIAZEPINES Negative (Negative); COCAINE Negative (Negative); METHADONE Negative (Negative); OPIATES Negative (Negative); PCP Negative (Negative)
[2021-05-28] MEDS ORDERED: GABAPENTIN100 MG PO (19:06)
[2021-05-28 19:30] LABS: ABSOLUTE NEUTROPHILS 4.1 thou/uL (1.4-8.2); BASOPHILS 0.8 % (0.0-2.0); EOSINOPHILS 3.5 % (0.0-3.0); HEMATOCRIT 30.8 % (42.0-52.0); HEMOGLOBIN 10.2 gm/dL (14.0-18.0); LYMPHOCYTES 12.1 % (24.0-44.0); MCH 28.2 pg (26.0-34.0); MCV 85.4 fL (80.0-100.0); MONOCYTES 7.5 % (1.0-8.0); PLATELET COUNT 321 thou/uL (150-400); POLYS 76.1 % (36.0-66.0); RBC 3.61 mil/uL (4.50-6.00); RDW 15.9 % (10.5-14.5); WBC 5.4 thou/uL (4.0-11.0)
[2021-05-28 19:47] LABS: CALCIUM 9.5 mg/dL (8.5-10.1); POTASSIUM 3.8 mmol/L (3.5-5.1)
[2021-05-28 19:57] LABS: ALBUMIN 3.1 g/dL (3.4-5.0); TOTAL BILIRUBIN 0.3 mg/dL (0.2-1.0); TOTAL PROTEIN 6.2 g/dL (6.4-8.2)
[2021-05-29] MEDS ORDERED: SUBOXONE 4 MG-1 EACH PO (00:29)
[2021-05-29] MEDS ORDERED: DILTIAZEM ER180 M2 PO (01:12)
[2021-05-29] MEDS ORDERED: NEURONTIN300 MG PO (01:13)
--- NOTE | 2021-05-29 01:16 | NUR ---
PT BELONGINGS SEARCHED WITH SECURITY AND RN AT BEDSIDE. PT AGREEABLE. SECURITY TOOK BUCKLE COVERER AND TOOKS THAT PT MAY HAVE AT TIME OF DISCHARGE. PTS PERSONAL MEDICATIONS AND INSULIN NEEDLES TAKEN FROM HIS BAG SEND TO PHARMACY
--- NOTE | 2021-05-29 03:16 | NUR ---
TARIK HULL MOLDER MADE AWARE THAT PATIENT IS STATING IF HE "DOESN'T GET ANYTHING STRONGER THAN TYLENOL, HE'S GOING TO WALK OUT"
[2021-05-29 05:13] LABS: HEMATOCRIT 29.7 % (42.0-52.0); HEMOGLOBIN 9.7 gm/dL (14.0-18.0); MCH 27.9 pg (26.0-34.0); MCHC 32.5 g/dL (28.0-37.0); MCV 85.9 fL (80.0-100.0); RBC 3.46 mil/uL (4.50-6.00); RDW 16.2 % (10.5-14.5); WBC 4.1 thou/uL (4.0-11.0)
[2021-05-29 05:34] LABS: CALCIUM 8.4 mg/dL (8.5-10.1); CREATININE 1.1 mg/dL (0.7-1.3)
[2021-05-29] MEDS ORDERED: DILT-XR120 MG PO (05:36)
--- NOTE | 2021-05-29 11:18 | NUR ---
PT O2SAT DROPS TO 75 [address]EPING. ATTEMPTED TO PLACE NC ON PATIENT OVER THE MOUTH DUE TO MOUTHBREATHING WHILE ASLEEP. PT STATES "THAT DOES NOT GO IN MY MOUTH IT GOES IN MY NOSE AND SWUNG ARM AT THIS RN." EDUCATED PATIENT ON WHY CANNULA IS GOING IN THE MOUTH TO SUPPLEMENT OXYGEN WHILE HE IS SLEEPING WITH MOUTH OPEN. PT YELLED AT THIS RN TO GET OUT OF ROOM AND IS REFUSING TO WEAR OXYGEN.
--- NOTE | 2021-05-29 12:45 | EKG ---
[address] [address] ELECTROCARDIOGRAM REPORT Name: JORGE MCKENZIE Room #: 170-12 ADM IN .R.#: [id number] Admission: 05/29/21 Attend Phys: Lori Hale MD Discharge: Date of : 58 Report #: [id number] [facility] ED Test Date: 2021-05-28 Test Time: 18:38:20 Pat Name: JORGE MCKENZIE Department: Room: 170 12 Gender: M Sawdust Drier: SILVIA : 1960 Requested By: Lori Hale Order Number: [id number] MD: Tee Resendiz Measurements Intervals [place] Rate: 125 P: [place]: QRS: 1 QRSD: 94 T: 91 QT: 342 QTc: 494 Interpretive Statements Atrial fibrillation Minimal ST depression Borderline prolonged QT interval Compared to ECG 05/08/2021 01:31:27 ST (T wave) deviation now present Ventricular premature complex(es) no longer present Electronically Signed On 05-29-2021 12:45:25 SLITTING AND SHIPPING SUPERVISOR by Tee Resendiz [email or web address] <ELECTRONICALLY SIGNED> By: Tee Resendiz MD 05/29/21 1245 1838 1838 Tee Resendiz MD /EPI
--- NOTE | 2021-05-29 12:45 | EKG ---
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: SILVIA : 1960 Requested By: Lori Hale Order Number: [id number] MD: Tee Resendiz Measurements Intervals [place] Rate: 66 P: 48 VA: 145 QRS: 9 QRSD: 93 T: 64 QT: 419 QTc: 439 Interpretive Statements Sinus rhythm ST elevation, consider inferior injury Baseline wander in lead(s) II,aVF Compared to ECG 05/28/2021 18:38:20 Myocardial infarct finding now present Atrial fibrillation no longer present ST (T wave) deviation still present Electronically Signed On 05-29-2021 12:45:36 CSM CONSULTANT by Tee Resendiz [email or web address] <ELECTRONICALLY SIGNED> By: Tee Resendiz MD 05/29/21 1245 56 56 Tee Resendiz MD /EPI
[2021-05-29 15:05] VITALS: BP 132/68
[2021-05-29 15:26] VITALS: BP 123/71
[2021-05-29 15:46] VITALS: BP 147/76
--- NOTE | 2021-05-29 18:06 | NUR ---
PT CAME UP FROM ER AT APPROXIMATELY 1530. ER NURSE STATED PT ARRIVED WITH AFIB WITH RVR AND HYPOTENSION. PT WAS TREATED IN THE ER AND IS NOW IN NORMAL SINUS WITH A STABLE BLOOD PRESSURE. PT DOES NOT APPEAR TO BE IN ANY DISTRESS.
[2021-05-29 20:15] VITALS: BP 144/79
[2021-05-30 01:00] VITALS: BP 152/91
[2021-05-30 04:39] VITALS: BP 140/60
--- NOTE | 2021-05-30 04:45 | NUR ---
Assumed pt care at 1900. Pt is alert and oriented. No sign of distress noted in pt. Pt is stable. Assessment completed and documented. Pt is in NSR at the beginning of the shift. Scheduled med administered noted. During the shift at 00:47, pt went into AFIB RVR. DENTAL RESIDENT notified and lopressor ordered. Lopressor did not help with the AFIB so cardizem drip was started to titration. Heart rate getting stable on cardizem drip. No sign of distress noted during the night. Continue to monitor. No further needs at this time.
[2021-05-30 07:28] VITALS: BP 143/87
[2021-05-30 11:40] VITALS: BP 131/57
--- NOTE | 2021-05-30 12:06 | EKG ---
[address] [address] ELECTROCARDIOGRAM REPORT Name: JORGE MCKENZIE Room #: 210-P ADM IN M.R.#: [id number] Admission: 05/29/21 Attend Phys: Lori Hale MD Discharge: Date of : 58 Report #: [id number] [facility] Test Date: 2021-05-30 Test Time: 00:59:01 Pat Name: JORGE MCKENZIE Department: Room: 210 P Gender: M Recordist: JUAN CARLOS HANSEN : 1960 Requested By: Lori Hale Order Number: [id number] MD: Tee Resendiz Measurements Intervals [place] Rate: 141 P: [place]: QRS: 51 QRSD: 93 T: 73 QT: 300 QTc: 460 Interpretive Statements Atrial fibrillation No ischemia on this EKG or prior EKG on 05/28/2021 Electronically Signed On 05-30-2021 12:06:34 SALES REPRESENTATIVE TRAINEE by Tee Resendiz [email or web address] <ELECTRONICALLY SIGNED> By: Tee Resendiz MD 05/30/21 1206 0059 0059 MD MOOKIE Henry
[2021-05-30 15:07] VITALS: BP 136/70
--- NOTE | 2021-05-30 17:19 | NUR ---
PT REMAINED IN AFIB THROUGHOUT THE SHIFT. CARDIZEM WAS TITRATED DOWN OVER SEVERAL HOURS FROM 20 TO 5. PT HEART RATE RANGED BETWEEN 70 AND 110. PT DENIED ANY COMPLAINTS.
[2021-05-30 20:15] VITALS: BP 144/66
[2021-05-31 04:45] VITALS: BP 136/65
--- NOTE | 2021-05-31 05:30 | NUR ---
Assumed pt care at 1900. Pt is alert and oriented. Still in afib, Assessment completed and documented. Scheduled meds administered to pt. No acute event through the night. Continue to monitor.
[2021-05-31 07:05] VITALS: BP 152/90
[2021-05-31 11:20] VITALS: BP 132/55
[2021-05-31 15:15] VITALS: BP 115/60
--- NOTE | 2021-05-31 16:11 | NUR ---
Assumed care of pt this AM. Pt is A&O x4, on RA. Afib on the monitor. Cardizem gtt still in place. Order received from cardiology for lopressor IV one time to bring down HR. Pt denies any pain. Up SBA.
[2021-05-31 20:07] VITALS: BP 117/65
--- NOTE | 2021-06-01 05:04 | NUR ---
Assumed pt care at 1900. Pt is alert and oriented. No sign of distress noted, Cardizem in place. Assessment completed and documented. Scheduled meds administered to pt. No acute event during the shift. Continue to monitor. No further needs at this time.
[2021-06-01 05:30] VITALS: BP 122/76
[2021-06-01 07:10] VITALS: BP 127/92
[2021-06-01 11:20] VITALS: BP 132/89
--- NOTE | 2021-06-01 12:02 | NUR ---
Assumed care of pt this AM. Pt is A&O x4, on RA, Afib on the monitor. HR variation between 70 - 140 today. Cardizem gtt going at 15ml/hr. Pt denies any pain. Pt states he's "getting bored". Will continue to monitor & adjust cardizem gtt per procedure.
--- NOTE | 2021-06-01 14:30 | NUR ---
CM role introduced at bedside. He is a&ox4 and indicates he continues to live in a tent [place] the hospital. 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 He has reached out to [facility] and has a f/u with them for medications and the gold card discount. He will call them from here to reschedule his appt. He plans to f/u at [facility] and also uses [facility]. Homeless programs/resources given and encouragement given for him to call several programs while he is here to see if he can get housing for the winter. Cm to vouch meds at [facility]. He is indep with gait and adl's. He will need a cab voucher at [facility] along with a 30 day supply of his medications. Will follow.
[2021-06-01 15:10] VITALS: BP 98/63
[2021-06-01 19:16] VITALS: BP 126/77
[2021-06-02 03:49] VITALS: BP 110/64
--- NOTE | 2021-06-02 04:12 | NUR ---
assumed pt care at 1900, alert and oriented, denies pain or sob, afib on tele with initial assessment, remains off cardizem gtt. pt converted to sr at 2011, remains sr/sb with occasianal pvs, no needs at this time, pt progressing well towards discharge
[2021-06-02 07:00] VITALS: BP 100/84
[2021-06-02 11:00] VITALS: BP 118/63
[2021-06-02] MEDS ORDERED: CARDIZEM CD120 MG PO (11:11)
[2021-06-02] MEDS ORDERED: METOPROLOL SUCC50 MG PO (11:11)
[2021-06-02 14:39] VITALS: BP 118/63
[2021-06-02 15:02] VITALS: BP 108/46
--- NOTE | 2021-06-02 16:30 | NUR ---
ASSESSMENT CHARTED - MEDS PER ABY EPREZ DIET AND FLUIDS. UP AD RENEE IN ROOM - NO CO'S OF PAIN OR NAUSEA. PT HOME THIS AFTERNOON - INSTRUCTION RE HOME MEDS/ CARE AND FOLLOW UP GIVEN TO PATIENT STATED UNDERSTANDING OF INSTRUCTION GIVEN. LEFT UNIT AMBULATORY - PICKED UP MEDS FROM PHARMACY - BELONGINGS FROM SECURITY - LEFT PROPERTY ON BIKE PARKED OUTSIDE THE ER.
--- NOTE | 2021-06-03 16:33 | NUR ---
Patient dc home. Offered cab but he has his bike. He has resources for ETOH ttx and [facility] info. Vouched medications in [facility] pharmacy
== END 2021-06-02 16:22 | disposition home or self-care (01) | DRG 309 ==
LOC: ER 18:22 → EROBS 05-29 00:13 → 2N 05-29 15:28
PROVIDERS: Emergency Medicine; Nurse Practitioner Family; ADMIT Hospitalist; ATTEND Hospitalist
DX: I48.91 Unspecified atrial fibrillation (principal); N17.9 Acute kidney failure, unspecified; Z79.01 Long term (current) use of anticoagulants; Z20.822 Contact with and (suspected) exposure to COVID-19; I10 Essential (primary) hypertension
CPT/HCPCS: 10081

== ENCOUNTER 2021-06-12 14:55 | Emergency (ER) | payer OTHER ==
[~2021-06-12] VITALS: Ht 170.2 cm; Wt 77.1 kg
[~2021-06-12 14:55] MED LIST changes: +GABAPENTIN100 MG PO; +METOPROLOL SUCC50 MG PO; +NEURONTIN300 MG PO; +NORVASC 2.5 MG2.5 M1 PO; +SUBOXONE 4 MG-1 EACH PO; +ZESTRIL5 MG PO
[2021-06-12 17:27] LABS: ABSOLUTE NEUTROPHILS 4.7 thou/uL (1.4-8.2); BASOPHILS 0.6 % (0.0-2.0); EOSINOPHILS 2.1 % (0.0-3.0); HEMATOCRIT 34.5 % (42.0-52.0); HEMOGLOBIN 11.1 gm/dL (14.0-18.0); LYMPHOCYTES 17.1 % (24.0-44.0); MCH 27.2 pg (26.0-34.0); MCHC 32.2 g/dL (28.0-37.0); MCV 84.5 fL (80.0-100.0); MONOCYTES 8.7 % (1.0-8.0); PLATELET COUNT 308 thou/uL (150-400); POLYS 71.5 % (36.0-66.0); RBC 4.08 mil/uL (4.50-6.00); RDW 15.8 % (10.5-14.5); WBC 6.6 thou/uL (4.0-11.0)
[2021-06-12 17:36] LABS: CALCIUM 8.8 mg/dL (8.5-10.1); CREATININE 0.7 mg/dL (0.7-1.3); POTASSIUM 3.8 mmol/L (3.5-5.1)
[2021-06-12 17:42] LABS: ALBUMIN 3.1 g/dL (3.4-5.0); TOTAL BILIRUBIN 0.3 mg/dL (0.2-1.0); TOTAL PROTEIN 6.6 g/dL (6.4-8.2); URIC ACID* 4.3 mg/dL (3.5-7.2)
[2021-06-12 19:26] LABS: URINE BILIRUBIN NEGATIVE (Negative); URINE BLOOD NEGATIVE (Negative); URINE CLARITY CLEAR; URINE COLOR YELLOW; URINE GLUCOSE-RANDOM* NEGATIVE (Negative); URINE KETONES NEGATIVE (Negative); URINE LEUKOCYTES-REFLEX NEGATIVE (Negative); URINE NITRITE-REFLEX NEGATIVE (Negative); URINE PROTEIN (DIPSTICK) NEGATIVE (Negative); URINE SPECIFIC GRAVITY 1.015 (1.005-1.035); URINE UROBILINOGEN 0.2 E.U./dl (0.2-1.0)
[2021-06-12 20:06] VITALS: BP 134/91
== END 2021-06-12 20:08 | disposition home or self-care (01) ==
LOC: ER 14:55
PROVIDERS: Nurse Practitioner
DX: M79.642 Pain in left hand (principal); M79.641 Pain in right hand; B19.20 Unspecified viral hepatitis C without hepatic coma; B19.10 Unspecified viral hepatitis B without hepatic coma; E78.00 Pure hypercholesterolemia, unspecified; I10 Essential (primary) hypertension; G62.9 Polyneuropathy, unspecified; I48.91 Unspecified atrial fibrillation; F10.10 Alcohol abuse, uncomplicated; F17.210 Nicotine dependence, cigarettes, uncomplicated; Z59.00 Homelessness unspecified; Z79.891 Long term (current) use of opiate analgesic; Z79.899 Other long term (current) drug therapy

== ENCOUNTER 2021-06-16 23:11 | Emergency (ER) | payer OTHER ==
[~2021-06-16] VITALS: Ht 170.2 cm; Wt 77.1 kg
[2021-06-16] MEDS ORDERED: BUPRENORP-NALO1 EAC1 SUBLING (23:36)
[2021-06-16] MEDS ORDERED: COLACE 100 MG100 MG PO (23:37)
[2021-06-16] MEDS ORDERED: NARCAN4 MG NARES (23:37)
[2021-06-17] MEDS ORDERED: FLEXERIL PO (01:12)
[2021-06-17] MEDS ORDERED: NAPROSYN500 MG PO (01:12)
[2021-06-17 03:04] VITALS: BP 133/83
== END 2021-06-17 03:04 | disposition home or self-care (01) ==
LOC: ER 23:11
DX: S23.3XXA Sprain of ligaments of thoracic spine, initial encounter (principal); B19.20 Unspecified viral hepatitis C without hepatic coma; B19.10 Unspecified viral hepatitis B without hepatic coma; E78.00 Pure hypercholesterolemia, unspecified; I10 Essential (primary) hypertension; G62.9 Polyneuropathy, unspecified; I48.91 Unspecified atrial fibrillation; F10.10 Alcohol abuse, uncomplicated; F19.10 Other psychoactive substance abuse, uncomplicated; F17.210 Nicotine dependence, cigarettes, uncomplicated; F12.90 Cannabis use, unspecified, uncomplicated; Z79.891 Long term (current) use of opiate analgesic; Z79.899 Other long term (current) drug therapy; W01.0XXA Fall on same level from slipping, tripping and stumbling without subsequent striking against object, initial encounter; Y93.89 Activity, other specified; Y92.89 Other specified places as the place of occurrence of the external cause; Y99.8 Other external cause status

== ENCOUNTER 2021-06-18 17:50 | Emergency (ER) | payer OTHER ==
[~2021-06-18] VITALS: Ht 170.2 cm; Wt 77.1 kg
[~2021-06-18 17:50] MED LIST changes: +BUPRENORP-NALO1 EAC1 SUBLING; +COLACE 100 MG100 MG PO; +NAPROSYN500 MG PO; +NARCAN4 MG NARES
[2021-06-18 19:16] VITALS: BP 125/85
== END 2021-06-18 19:33 | disposition left against medical advice (07) ==
LOC: ER 17:50
DX: M54.2 Cervicalgia (principal); B19.20 Unspecified viral hepatitis C without hepatic coma; B19.10 Unspecified viral hepatitis B without hepatic coma; E78.00 Pure hypercholesterolemia, unspecified; I10 Essential (primary) hypertension; G62.9 Polyneuropathy, unspecified; I48.91 Unspecified atrial fibrillation; F10.10 Alcohol abuse, uncomplicated; Z59.00 Homelessness unspecified; Z53.21 Procedure and treatment not carried out due to patient leaving prior to being seen by health care provider

== ENCOUNTER 2021-07-25 12:54 | Inpatient (IN) | payer OTHER ==
[~2021-07-25] VITALS: Ht 170.2 cm; Wt 75.3 kg
[~2021-07-25 12:54] MED LIST changes: +ADULT LOW DOSE81 MG PO
[2021-07-25 12:57] VITALS: BP 150/88
[2021-07-25 13:28] LABS: BASOPHILS 0.4 % (0.0-2.0); EOSINOPHILS 0.1 % (0.0-3.0); HEMATOCRIT 35.7 % (42.0-52.0); HEMOGLOBIN 11.9 gm/dL (14.0-18.0); LYMPHOCYTES 9.2 % (24.0-44.0); MCH 26.4 pg (26.0-34.0); MCHC 33.2 g/dL (28.0-37.0); MCV 79.5 fL (80.0-100.0); MONOCYTES 10.4 % (1.0-8.0); PLATELET COUNT 315 thou/uL (150-400); POLYS 79.9 % (36.0-66.0); WBC 6.3 thou/uL (4.0-11.0)
[2021-07-25 13:40] LABS: APTT 27.6 Seconds (24.5-32.8); INR 1.15; PROTIME 12.5 Seconds (10.5-12.1)
[2021-07-25 14:54] LABS: ALBUMIN 3.4 g/dL (3.4-5.0); CALCIUM 8.7 mg/dL (8.5-10.1); CREATININE 0.8 mg/dL (0.7-1.3); POTASSIUM 3.5 mmol/L (3.5-5.1); TOTAL BILIRUBIN 0.7 mg/dL (0.2-1.0); TOTAL PROTEIN 7.1 g/dL (6.4-8.2)
[2021-07-25 16:27] LABS: AMP/METHAMP POSITIVE (Negative); BARBITURATES Negative (Negative); BENZODIAZEPINES Negative (Negative); COCAINE Negative (Negative); METHADONE Negative (Negative); OPIATES Negative (Negative); PCP Negative (Negative)
[2021-07-26 05:27] LABS: BE(vivo) 0.1 mmol/L (-2 to +3); HCO3 22.3 mmol/L (22.0-26.0); PCO2 29.2 mmHg (35.0-45.0); pH 7.501 (7.360-7.450); sO2 90.9 % (92.0-98.0)
[2021-07-26 05:28] LABS: PO2 53.3 mmHg (80.0-100.0)
--- NOTE | 2021-07-26 07:32 | EKG ---
[place] [address] [facility] [place] [address] ELECTROCARDIOGRAM REPORT Name: JORGE MCKENZIE Room #: 170-6 [facility]..#: [id number] Admission: 07/25/21 Attend Phys: Evelyn Dunlap Discharge: Date of : 58 Report #: [id number] [facility] ED Test Date: 2021-07-25 Test Time: 13:03:49 Pat Name: JORGE MCKENZIE Department: Room: 170 Gender: M Mill Laborer: ZAIDA : 1960 Requested By: Elda Garcia Order Number: [id number] MD: Maurisio Nunez Measurements Intervals [place] Rate: 166 P: IN: QRS: 51 QRSD: 98 T: 161 QT: 290 QTc: 483 Interpretive Statements Atrial fibrillation with rapid V-rate Compared to ECG 07/03/2021 10:14:09 Ventricular premature complex(es) no longer present Early repolarization no longer present Electronically Signed On 07-26-2021 7:32:39 SPEECH COACH by Maurisio Nunez [email or web address] <ELECTRONICALLY SIGNED> By: Maurisio Nunez MD, [facility] 07/26/21 0732 1303 1303 Maurisio Nunez MD, [facility] /EPI
[2021-07-26 08:21] VITALS: BP 129/86
[2021-07-26 14:33] VITALS: BP 95/62
[2021-07-26 23:54] VITALS: BP 116/78
[2021-07-27 00:25] VITALS: BP 116/78
[2021-07-27 00:58] VITALS: BP 127/95
--- NOTE | 2021-07-27 03:39 | NUR ---
PATIENT ADMITTED FROM ER VIA STRETCHER. PATIENT IS AMBULATORY TO HIS BED. STATES THAT HE IS HAVING PAIN IN HIS LOWER BACK. PT ADMITTED FOR AFIB RVR. STATES THAT HE IS HOMELESS. PRN MEDICATION ADMINISTERED. AT THIS TIME PT HR IS 125-160. STATES THAT HE IS NOT HAVING ANY CHEST PAINS. PATIENT HAS BEEN ADMITTED A FEW TIMES RECENTLY FOR THE SAME ISSUES. WILL CONTINUE TO MONITOR FOR CHANGES IN STATUS.
[2021-07-27 04:16] VITALS: BP 121/95
[2021-07-27 05:04] LABS: ALBUMIN 2.6 g/dL (3.4-5.0); CALCIUM 8.4 mg/dL (8.5-10.1); CREATININE 0.8 mg/dL (0.7-1.3); PHOSPHORUS 2.7 mg/dL (2.6-4.7); POTASSIUM 3.5 mmol/L (3.5-5.1)
[2021-07-27 07:00] VITALS: BP 127/88
--- NOTE | 2021-07-27 09:36 | NUR ---
PATIENT ADMITTED FOR AFIB. CHART REVIEWED AND DISCUSSING WITH CARE TEAM. CM MET WITH PT THIS DAY. PT REPORTS HE LIVES IN A TENT BY THE [facility]. HAS BEEN "ON THE STREETS" FOR 10 YEARS. HE REPORTS HIS PRIMARY CONTACT IS JORGE GARCIA WHO LIVES IN [place]. ALTHOUGH THE LAST TIME HE SPOKE TO HIM HE DID NOT MAKE HIM FEEL WELCOME AND THEY DONT HAVE A RELATIONSHIP. HE REPORTS WHEN IT IS REALLY COLD HE GOES TO A FRIENDS APARTMENT AND STAYS IN THE WASHROOM. 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 HE DENIES PREVIOUS HH OR THERAPY OF ANY KIND. HE REPORTS NOT HAVING A PCP. NO THERAPY ORDERS ORDERED AT THIS TIME. CM FOLLOWING FOR DC PLANNING AND HOMELESS RESOURCES.
[2021-07-27 11:20] VITALS: BP 113/94
[2021-07-27 15:05] VITALS: BP 112/75
--- NOTE | 2021-07-27 16:43 | NUR ---
ASSESSMENT CHARTED - MEDS PER AUG - HR THIS AM WAS IN THE 140'S AM MEDS/ GIVEN AND HR DROPPED DOWN TO THE 90- 110S. DOES ELEVATE WITH ACTIVITY.PT UP OT THE BATHROOM, CHRIS DIET AND FLUIDS - NO CO'S OF NAUSEA. PT GIVEN HYDROCODONE FOR CO'S OF GENERALIZED/ NECK PAIN WITH MOD RELIEF. PT NOW ON ROOM AIR. DID HAVE 1 EPISODE THIS AFTERNOON WHERE HE STATED HE FELT SOB. ENCOURAGED TO TAKE SLOW DEEP BREATH - LUNGS WITH NO CHANGE - EPISODE PASSED - NO FURTHER CO'S. APPEARS TO BE RESTING COMFORTABLY AT THE PRESENT TIME.
[2021-07-28 03:06] LABS: HEMATOCRIT 35.5 % (42.0-52.0); HEMOGLOBIN 11.3 gm/dL (14.0-18.0); MCH 25.4 pg (26.0-34.0); MCHC 31.8 g/dL (28.0-37.0); MCV 79.7 fL (80.0-100.0); RBC 4.46 mil/uL (4.50-6.00); RDW 15.4 % (10.5-14.5); WBC 3.9 thou/uL (4.0-11.0)
[2021-07-28 04:01] LABS: ALBUMIN 2.7 g/dL (3.4-5.0); CALCIUM 8.6 mg/dL (8.5-10.1); CREATININE 0.8 mg/dL (0.7-1.3); PHOSPHORUS 3.2 mg/dL (2.5-4.9); POTASSIUM 3.7 mmol/L (3.5-5.1)
[2021-07-28 04:45] VITALS: BP 106/76
[2021-07-28 07:30] VITALS: BP 108/82
[2021-07-28 15:30] VITALS: BP 109/74
[2021-07-28 16:38] VITALS: BP 109/74
--- NOTE | 2021-07-28 16:39 | NUR ---
ASSESSMENT CHARTED - MEDS PER ABY - CHRIS DIET AND FLUIDS. GIVEN PAIN MEDS WITH GOOD RELIEF- BACK / NECK/ UP AD RENEE IN ROOM - PT SLIGHTLY SOB WITH EXERTION AND HR ELEVATES WITH EXERTION. NO CO'S AT THE PRESENT TIME.
--- NOTE | 2021-07-28 16:41 | NUR ---
CM FOLLOWING FOR DC PLANNING. AWAITING CARDIOLOGY FOR DC CLEARANCE. CM PLACED HOMELESS RESOURCES ON PTS DC INSTRUCTIONS. CM FOLLOWING FOR FURTHER DISCHARGE PLANNING AND NEEDS.
[2021-07-28 20:01] VITALS: BP 117/73
--- NOTE | 2021-07-28 23:57 | NUR ---
ASSESSMENTS CHARTED, MEDS CHARTED GIVEN. PATIENT RESTING IN BED DURING SHIFT. C/O PAIN IN NECK, MED GIVEN CHARTED. UP AT RENEE IN ROOM. REQUESTING SNACKS DURING SHIFT.
[2021-07-29 06:13] VITALS: BP 121/96
[2021-07-29 08:44] VITALS: BP 127/72
[2021-07-29 12:26] VITALS: BP 95/59
--- NOTE | 2021-07-29 14:56 | NUR ---
CM SPOKE TO PHYSICIAN. PT NOT MEDICALLY STABLE TO DC THIS DAY. ANTICIPATE PT WILL DISCHARGE TOMORROW. CM FOLLOWING.
[2021-07-29 16:15] VITALS: BP 116/82
--- NOTE | 2021-07-29 18:17 | NUR ---
PT IS AXOX4, PLEASANT; VSS, AFEBRILE, AFIB ON THE MONITOR. PT STARTED IN AM WITH INCREASED AFIB HR DURING ACTIVITY. WHILE NOT SUSTAINED, AFIB POORLY CONTROLLED. DR RUIZ CONSULTED. RX METOPROLOL INCREASED. PT UP AD RENEE IN ROOM. CASE MGMT CONSULTED. POC IS TO CONTINUE TO CONTROL HR, MONITOR VS. SWS TO PROVIDE RESOURCES FOR HOMELESS UPON D/C. PT C/O SOME CHRONIC PAIN IN NECK/BACK AREA. PAIN MGMT PROVIDED VIA RX. LOW FALL PRECAUTIONS IN PLACE. NO CONCERNS AT THIS TIME.
[2021-07-29 20:07] VITALS: BP 103/65
[2021-07-30] VITALS (7 sets, daily range): BP systolic 90–115; BP diastolic 58–81
--- NOTE | 2021-07-30 00:48 | NUR ---
ASSESSMENTS CHARTED, MEDS CHARTED GIVEN. PATIENT RESTING IN ROOM DURING SHIFT. UP AT RENEE. PLAN IS TO DISCHARGE IN THE MORNING IF AFIB STAYS CONTROLLED.
[2021-07-30] MEDS ORDERED: LEVOFLOXACIN500 MG PO (15:57)
[2021-07-30] MEDS ORDERED: TOPROL XL100 MG PO (15:58)
--- NOTE | 2021-07-30 16:14 | NUR ---
PT MEDICALLY STABLE TO DC THIS DAY. MEDS SENT TO [facility]. PT HAS NO COPAY FOR MEDS. CM PICKED UP MEDS AND DELIVERED TO NURSING WELL CAB VOUCHER. NO FURTHER CM INTERVENTIONS INDICATED AT THIS TIME.
--- NOTE | 2021-07-30 16:44 | NUR ---
assumed care of pt at 0700. pt aox4, no acute distress. breathing comfortably on room air. controlled afib on telemetry, no events. soft bp but stable. stable for discharge per physician. prescription meds and cab voucher provided. pt reports he drove himself here. will escort patient out after dinner.
== END 2021-07-30 17:54 | disposition home or self-care (01) | DRG 291 ==
LOC: ER 12:54 → 2N 15:38 → EROBS 15:38 → 2N 07-27 00:49
PROVIDERS: Emergency Medicine; Nurse Practitioner Family; ADMIT Hospitalist; ATTEND Hospitalist
PROC: 5A0935A Assistance with Respiratory Ventilation, Less than 24 Consecutive Hours, High Flow/Velocity Cannula (ICD-10-PCS; principal; 2021-07-26)
DX: I11.0 Hypertensive heart disease with heart failure (principal); I50.33 Acute on chronic diastolic (congestive) heart failure; J18.9 Pneumonia, unspecified organism; J96.01 Acute respiratory failure with hypoxia; I48.91 Unspecified atrial fibrillation; Z79.01 Long term (current) use of anticoagulants; Z20.822 Contact with and (suspected) exposure to COVID-19; F15.10 Other stimulant abuse, uncomplicated; F17.210 Nicotine dependence, cigarettes, uncomplicated
CPT/HCPCS: 10081

== ENCOUNTER 2021-08-16 18:00 | Inpatient (IN) | payer OTHER ==
[~2021-08-16] VITALS: Ht 170.2 cm; Wt 78.9 kg
[~2021-08-16 18:00] MED LIST changes: +LEVOFLOXACIN500 MG PO; +TOPROL XL100 MG PO
[2021-08-16 18:11] VITALS: BP 118/57
[2021-08-16 19:20] LABS: ABSOLUTE NEUTROPHILS 3.8 thou/uL (1.4-8.2); BASOPHILS 0.4 % (0.0-2.0); EOSINOPHILS 2.7 % (0.0-3.0); HEMATOCRIT 30.6 % (42.0-52.0); HEMOGLOBIN 9.8 gm/dL (14.0-18.0); LYMPHOCYTES 13.4 % (24.0-44.0); MCH 25.1 pg (26.0-34.0); MCV 78.6 fL (80.0-100.0); PLATELET COUNT 100 thou/uL (150-400); POLYS 71.5 % (36.0-66.0); RBC 3.89 mil/uL (4.50-6.00); RDW 17.1 % (10.5-14.5); WBC 5.3 thou/uL (4.0-11.0)
[2021-08-16 19:31] LABS: CALCIUM 7.7 mg/dL (8.5-10.1); CREATININE 1.3 mg/dL (0.7-1.3); POTASSIUM 3.3 mmol/L (3.5-5.1)
[2021-08-16 19:41] LABS: ALBUMIN 2.6 g/dL (3.4-5.0); TOTAL BILIRUBIN 1.3 mg/dL (0.2-1.0); TOTAL PROTEIN 5.2 g/dL (6.4-8.2)
[2021-08-17] VITALS (8 sets, daily range): BP systolic 89–153; BP diastolic 61–81
--- NOTE | 2021-08-17 01:25 | NUR ---
PT PRESENTED FROM ED. PT HOMELESS REPORTING FATIGUE WEAKNESS SORE THROAT. PT IN AFIBB RVR. PLACED ON CARDIZEM DRIP. MED HX HOMELESS, METHAMPHETAMINE AND MARIJUANA AND ALCOHOL ABUSE, HEPATITIS B AND C, TRANSAMINITIS, HIGH CHOLESTEROL, HTN, NEUROPATHY, PAROXYMAL AFIBB. PT ARRIVED TO FLOOR AND PROVIDED MEAL TRAY. BED ALARM ON. MERARY SKIN TONE, DISHEVELED.
--- NOTE | 2021-08-17 07:39 | EKG ---
[address] [place] [address] ELECTROCARDIOGRAM REPORT Name: JORGE MCKENZIE Room #: 361-P ADM IN M.R.#: [id number] Admission: 08/16/21 Attend Phys: Willi Ha MD Discharge: Date of : 58 Report #: [id number] [facility] ED Test Date: 2021-08-16 Test Time: 19:00:59 Pat Name: JORGE MCGHEENEY Department: Room: 361 Gender: M Oil Agent: AMIRAH : 1960 Requested By: Spike Lyn Order Number: [id number] MD: Maurisio Nunez Measurements Intervals [place] Rate: 170 P: MS: QRS: 76 QRSD: 90 T: 171 QT: 244 QTc: 411 Interpretive Statements Atrial fibrillation with rapid V-rate Multiple ventricular premature complexes Borderline low voltage, extremity leads Repolarization abnormality, prob rate related Compared to ECG 07/25/2021 13:03:49 Ventricular premature complex(es) now present Early repolarization now present Electronically Signed On 08-17-2021 7:39:09 DRIVERS' CASH CLERK by Maurisio Nunez [email or web address] <ELECTRONICALLY SIGNED> By: Maurisio Nunez MD, FACC 08/17/21 0739 1900 1900 Maurisio Nunez MD, [facility] /EPI
[2021-08-17 13:13] LABS: CALCIUM 7.7 mg/dL (8.5-10.1)
[2021-08-17 13:17] LABS: POTASSIUM 5.3 mmol/L (3.5-5.1)
--- NOTE | 2021-08-17 17:16 | NUR ---
Case opened to follow for dc planning support. Pt is well known to cm from previous admissions. He has insurance in place for scripts at [place]. He is homeless and does lease [facility] on occasion. He has been provided info for [facility] and f/u care as well as substance abuse resources as typically does not followup. He was dc'd a couple of weeks ago. His son Willy rolon is his emergency contact only if something happens to him. He is on a cardizem gtt and being treated for afib/rvr and transminitis, HTN and +meth. CM to provide resources again for f/u care, cab ride [place], and help fill [facility] [place].
--- NOTE | 2021-08-17 18:31 | NUR ---
ASSUMED PATIENT CARE AT 0700. AFIB ON MONITOR. UP AD RENEE. C/O THROAT PAIN. WILL KEEP MONITOR.
[2021-08-18 03:23] VITALS: BP 106/63
--- NOTE | 2021-08-18 06:27 | NUR ---
Patient is alert and oriented x 4. Patient is confused and does not remember limitations. Patient is on room air. Patient is cc/ tele and has been running sinus rhythm this shift. Patient has been continent of urine this shift. Patient has IV's in his left forearm and right forearm. Both IV sites are patent and salin locked. Patient was given a one time bolus of NS 250 mL's for low blood pressure. Blood pressure appears to have improved. Patinet will continue to be monitored.
[2021-08-18 07:20] VITALS: BP 123/91
[2021-08-18 11:11] VITALS: BP 120/73
--- NOTE | 2021-08-18 11:32 | EKG ---
[address] [address] ELECTROCARDIOGRAM REPORT Name: JORGE MCKENZIE Room #: 361- ADM IN M.R.#: [id number] Admission: 08/16/21 Attend Phys: Willi Ha MD Discharge: Date of : 58 Report #: [id number] [facility] Test Date: 2021-08-18 Test Time: 09:18:48 Pat Name: JORGE MCKENZIE Department: Room: 361 P Gender: M Behavioral Health Director: : 1960 Requested By: Blanca Holbrook Order Number: [id number] MD: Maurisio Nunez Measurements Intervals [place] Rate: 117 P: 260 SC: 149 QRS: 20 QRSD: 87 T: QT: 356 QTc: 497 Interpretive Statements Ectopic atrial tachycardia, unifocal Borderline repolarization abnormality Borderline prolonged QT interval Compared to ECG 08/16/2021 19:00:59 Atrial fibrillation no longer present Ventricular premature complex(es) no longer present Electronically Signed On 08-18-2021 11:32:32 CHIEF OPERATOR LOCK TENDER by Maurisio Nunez [email or web address] <ELECTRONICALLY SIGNED> By: Maurisio Nunez MD, FAC 08/18/21 1132 7 7 Maurisio Nunez MD, [facility] /EPI
[2021-08-18] MEDS ORDERED: ADULT LOW DOSE81 MG PO (14:53)
[2021-08-18] MEDS ORDERED: COLACE 100 MG100 MG PO (14:53)
[2021-08-18] MEDS ORDERED: NEURONTIN300 MG PO (14:53)
[2021-08-18] MEDS ORDERED: CARDIZEM CD120 MG PO (14:53)
[2021-08-18] MEDS ORDERED: TOPROL XL100 MG PO (14:53)
--- NOTE | 2021-08-18 14:59 | NUR ---
DISCHARGE NOTE: ARIANNE reviewed chart and spoke with nursing and attending physician. Pt is medically stable for discharge today. ARIANNE spoke with pt to discuss discharge plan. Pt is homeless. ARIANNE offered to provide pt with information regarding homeless shelters, [facility] and prescription discount card. Pt states he will take the info, but is planning on returning to [place] homeless [place] location. Pt requests new prescriptions to be sent to [facility]. Pt will need a cab voucher. ARIANNE faxed face sheet to outpatient pharmacy. Spoke with Valentina in the outpatient pharmacy to notify. Pt has health insurance. ARIANNE left [facility] card, RX card and homeless skilled nursing info with pt's nurse to provide to pt upon discharge. Cab Voucher # [phone] provided. No additional SW needs identified at this time. ARIANNE is available to assist should needs arise.
[2021-08-18 15:19] VITALS: BP 120/73
--- NOTE | 2021-08-18 15:34 | NUR ---
ASSUMED PATIENT CARE AT 0700. A/O X4. AFIB ON MO NITOR. HR [id number] NOW, DC TO HOME NOW.
== END 2021-08-18 16:13 | disposition home or self-care (01) | DRG 309 ==
LOC: ER 18:00 → 3W 21:35 → EROBS 21:35 → 3W 08-17 00:34
PROVIDERS: Pediatrics; Physician Assistant; ADMIT Internal Medicine; ATTEND Internal Medicine
DX: I48.0 Paroxysmal atrial fibrillation (principal); E70.0 Classical phenylketonuria; E78.00 Pure hypercholesterolemia, unspecified; I10 Essential (primary) hypertension; G62.9 Polyneuropathy, unspecified; F12.90 Cannabis use, unspecified, uncomplicated; I95.9 Hypotension, unspecified; R74.01 Elevation of levels of liver transaminase levels; F15.10 Other stimulant abuse, uncomplicated; F19.10 Other psychoactive substance abuse, uncomplicated; D69.6 Thrombocytopenia, unspecified; Z20.822 Contact with and (suspected) exposure to COVID-19; Z86.19 Personal history of other infectious and parasitic diseases; Z91.14 Patient's other noncompliance with medication regimen; Z59.00 Homelessness unspecified
CPT/HCPCS: 10879